=== PATIENT | female | born 1980 ===

== ENCOUNTER 2024-05-20 19:51 | Outpatient (CLI) | payer OTHER, SELFPAY | END 2024-05-20 19:52 | disposition home or self-care (01) | LOC: AMB 05-25 12:05 | PROVIDERS: Visit Provider Student in an Organized Health Care Education/Training Program | DX: R56.9 Unspecified convulsions (principal) | CPT/HCPCS: A0425; A0427 ==

== ENCOUNTER 2024-05-20 20:33 | Emergency (ER) | payer OTHER, SELFPAY ==
[2024-05-20] VITALS (27 sets, daily range): BP systolic 102–130; BP diastolic 44–85; PULSE 59–77; RESP 20; TEMP 36.9; O2SAT 94–99
--- NOTE | 2024-05-20 20:42 | CRLHL7_ITS ---
For Patients: As a result of the Century Cures Act, medical imaging exams and procedure reports are released immediately into your electronic medical record. You may view this report before your referring provider. If you have questions, please contact your health care provider. INDICATION: BURNING COUGH FOR 6 DAYS. TECHNIQUE: Chest 1 view. COMPARISON: None. FINDINGS: Unremarkable cardiomediastinal contours. No lung consolidation. No sign of pleural effusion. No pneumothorax. No acute osseous or soft tissue findings. IMPRESSION: No acute findings. Dictated by Bladimir Block MD @ 05/20/2024 9:02:42 PM (Electronically Signed)
--- NOTE | 2024-05-20 21:03 | ED.GENADULT ---
HPI - General Adult General Date Seen: 05/20/24 Chief complaint: Cough Stated complaint: possible pneumonia Time Seen by Provider: 05/20/24 20:51 Source: patient and EMS Mode of arrival: EMS Limitations: no limitations History of Present Illness HPI narrative: Patient is a 43-year-old female presenting to the emergency department for concern of pneumonia. Patient is brought in via EMS for 6 days of cough, left lower chest pain, epigastric discomfort and nausea. She states she was not feeling well and was sitting on a step when suddenly she felt herself sitting in the chair and she started to shake and then passed out and next thing she knew she was on the ground shaking. She states she remembers the shaking. Denies this ever happening before. No history of seizures. She states flu-like symptoms are not seeming to get better and she is coughing up a lot of green phlegm. She states she has been swallowing a lot of it is causing some epigastric discomfort. States that the pain is pretty minimal or at this time. Does have some mild shortness of breath. Is on hormonal control. No history of cancer or blood clots. Has not noticed any lower extremity edema, hemoptysis. No recent travel or surgeries. Denies any other medical issues. Denies any heart or lung disease. Has never smoked. Is also complaining of a sore throat. Is not aware of any sick contacts. Review of Systems Status of ROS: Reports: 10 or more systems reviewed and unremarkable except as noted in History and below [facility] Social History Smoking Status: Never smoker Do you use any of these nicotine containing products: None How often do you have a drink containing alcohol: never How often do you have six or more drinks on one occasion: Never AUDIT-C Alcohol total score: 0 Non-prescribed substance use: denies use service: No Exam Narrative: Exam Narrative: Const: Well-nourished, Well-developed, in mild distress Eyes: PERRL, no conjunctival injection, and symmetrical lids HENT: Atraumatic external nose and ears. Moist mucous membranes. Uvula midline, no tonsillar exudate or swelling Neck: Symmetric, trachea midline, No thyromegaly. CVS: RRR, No murmurs or gallops. Peripheral pulses 2+ and equal in all extremities, no lower extremity edema RESP: Unlabored respiratory effort. Clear to auscultation bilaterally. GI: Nontender/Nondistended, No rebound or guarding. MSK:Extremities w/o deformity, Normal Active ROM Skin: Warm, Dry. No rashes or lesions. Neuro: Normal Muscle tone, No focal neurological deficits. Psych: Awake, Alert, & Oriented x3. Appropriate mood and affect. Const: Vital Signs, click to edit/add: Vital Signs - 24 hr 05/20/24 20:38 05/20/24 20:56 05/20/24 21:00 Temperature 98.5 F Pulse Rate 74 75 Pulse Rate [Pulse Oximeter] 74 Respiratory Rate 20 Blood Pressure Blood Pressure [Le ft Upper Arm] 130/85 Pulse Oximetry 98 97 99 Oxygen Delivery Me thod Room Air 05/20/24 21:05 05/20/24 21:15 05/20/24 21:17 Temperature Pulse Rate 66 64 64 Pulse Rate [Pulse Oximeter] Respiratory Rate Blood Pressure 123/73 Blood Pressure [Le ft Upper Arm] Pulse Oximetry 99 96 97 Oxygen Delivery Me thod 05/20/24 21:18 05/20/24 21:30 05/20/24 21:32 Temperature Pulse Rate 64 65 61 Pulse Rate [Pulse Oximeter] Respiratory Rate Blood Pressure 102/60 Blood Pressure [Le ft Upper Arm] Pulse Oximetry 97 97 98 Oxygen Delivery Me thod 05/20/24 21:45 05/20/24 21:47 05/20/24 22:00 Temperature Pulse Rate 61 63 67 Pulse Rate [Pulse Oximeter] Respiratory Rate Blood Pressure 111/79 Blood Pressure [Le ft Upper Arm] Pulse Oximetry 97 94 98 Oxygen Delivery Me thod 05/20/24 22:02 05/20/24 22:03 05/20/24 22:15 Temperature Pulse Rate 62 64 64 Pulse Rate [Pulse Oximeter] Respiratory Rate Blood Pressure 123/60 Blood Pressure [Le ft Upper Arm] Pulse Oximetry 98 98 95 Oxygen Delivery Me thod 05/20/24 22:17 05/20/24 22:18 05/20/24 22:30 Temperature Pulse Rate 65 65 73 Pulse Rate [Pulse Oximeter] Respiratory Rate Blood Pressure 108/61 Blood Pressure [Le ft Upper Arm] Pulse Oximetry 96 96 98 Oxygen Delivery Me thod 05/20/24 22:33 05/20/24 22:45 05/20/24 22:47 Temperature Pulse Rate 68 60 64 Pulse Rate [Pulse Oximeter] Respiratory Rate Blood Pressure 110/51 L 113/76 Blood Pressure [Le ft Upper Arm] Pulse Oximetry 97 98 97 Oxygen Delivery Me thod 05/20/24 23:00 05/20/24 23:02 Temperature Pulse Rate 63 62 Pulse Rate [Pulse Oximeter] Respiratory Rate Blood Pressure 112/44 L Blood Pressure [Le ft Upper Arm] Pulse Oximetry 96 95 Oxygen Delivery Me thod Course Vital Signs Vital signs: Initial Vital Signs Temperature 98.5 F 05/20/24 20:38 Temperature Source Temporal Artery Scan 05/20/24 20:38 Pulse Rate 74 05/20/24 20:38 Respiratory Rate 20 05/20/24 20:38 Blood Pressure 130/85 05/20/24 20:38 Blood Pressure Mean 100 05/20/24 20:38 Pulse Oximetry 98 05/20/24 20:38 Oxygen Delivery Method Room Air 05/20/24 20:38 Vital Signs Temperature 98.5 F 05/20/24 20:38 Pulse Rate 74 05/20/24 20:38 Respiratory Rate 20 05/20/24 20:38 Blood Pressure 130/85 05/20/24 20:38 Pulse Oximetry 98 05/20/24 20:38 Oxygen Delivery Method Room Air 05/20/24 20:38 Temperature 98.5 F 05/20/24 20:38 Pulse Rate 77 05/20/24 23:30 Respiratory Rate 20 05/20/24 20:38 Blood Pressure 118/63 05/20/24 23:17 Pulse Oximetry 97 05/20/24 23:30 Oxygen Delivery Method Room Air 05/20/24 20:38 Medications Administered Medications: Discontinued Medications Generic Name Dose Route Start Last Admin Trade Name Freq PRN Reason Stop Dose Admin Ketorolac Tromethamine 15 mg 05/20/24 22:11 05/20/24 22:20 Ketorolac 15 Mg/Ml Inj IVP 05/20/24 22:12 15 mg ONCE ONE Administration Medical Decision Making MDM Narrative Medical decision making narrative: Patient is a 43-year-old female presenting with sounds like flu-like symptoms. She is having some chest pain. The differential diagnosis of chest pain is broad and includes common etiologies such as musculoskeletal strain, GERD, pneumonia, etc. More serious etiologies considered include PE, coronary artery disease, pneumothorax, aortic dissection, aortic aneurysm. Will do a chest x-ray to look for signs of pneumonia or pneumothorax. She cannot be perked out so D-dimer was ordered. Troponin EKG ordered to look for signs of coronary artery disease or myocarditis. COVID/flu/RSV ordered. With her epigastric discomfort are will also order lipase and liver panel. CBC, Chem 7, magnesium all ordered. Her shaking sounds more like a syncopal episode rather than a seizure as she has full memory of the shaking. She came to quickly after the shaking stopped and does not sound like she had a postictal period. Patient is also having a sore throat. Patient is not showing signs of peritonsillar abscess, Dell angina, retropharyngeal abscess,Lemierre disease or any other concerning oral pharynx or deep neck space abscesses. Imaging is not necessary Lab work returned showing no concerning abnormalities other than elevated D-dimer. Viral swabs and strep test are negative. With the elevated D-dimer a CTA will be ordered. She continues to have this epigastric discomfort and would like a CT scan of her abdomen also. This will be performed since she is already in a CT scan of her chest. I also do CT scan of her head to make sure there are no intracranial abnormalities. Her symptoms definitely sounded more like a syncopal episode but will make sure there are no intracranial issues. Patient Signed out to Dr. Bowens pending CT results. Expected dispostion is D/C. CT scan results added to my note during my next shift on 05/23/2024 Lab Data Labs: Lab Results 05/20/24 05/20/24 05/20/24 Range/Units 20:45 21:10 21:25 WBC 6.75 (4.50-11.00) K/uL RBC 4.60 (4.00-5.20) m/uL Hgb 12.9 (12.0-16.0) gm/dL Hct 40.4 (33.0-51.0) % MCV 88 (80-100) fL MCH 28 (26-34) pg MCHC 32 (32-36) gm/dL RDW Coeff of Antonio 12.7 (11.5-15.5) % Plt Count 199 (140-440) K/uL Neut % (Auto) 62.3 (42.0-72.0) % Lymph % (Auto) 28.4 (20-44) % Grayson % (Auto) 6.2 (0.0-11.0) % Eos % (Auto) 2.5 (0.0-7.0) % Baso % (Auto) 0.3 (0.0-3.0) % Neut # (Auto) 4.20 (1.7-7.0) K/uL Lymph # (Auto) 1.92 (0.90-2.90) K/uL Grayson # (Auto) 0.40 (0.00-0.90) K/UL Eos # (Auto) 0.17 (0.00-0.50) K/uL Baso # (Auto) 0.02 (0.00-0.30) K/uL Abs Immat Gran (auto) 0.02 (0.00-0.30) K/uL Imm/Tot Granulo (auto) 0.3 % D-Dimer Quant (PE/DVT) (0.00-0.50) ug/ml Sodium 137 (135-149) mmol/L Potassium 3.7 (3.6-5.1) mmol/L Chloride 106 (96-114) mmol/L Carbon Dioxide 22 (20-32) mmol/L Anion Gap 9 (7-15) mEq/L BUN 12 (5-24) mg/dL Creatinine 0.5 (0.5-1.5) mg/dL Estimated GFR 118 ml/min Glucose 102 (60-115) mg/dL Calcium 9.3 (8.4-10.6) mg/dL Magnesium 2.0 (1.5-2.6) mg/dL Total Bilirubin 0.4 (0.1-1.5) mg/dL AST 19 (12-35) U/L ALT 19 (4-35) U/L Alkaline Phosphatase 77 (40-150) U/L Troponin I < 0.01 L (0.01-0.04) ng/mL Total Protein 7.4 (6.0-8.3) g/dL Albumin 4.4 (3.3-5.0) g/dL Lipase 38 (23-300) U/L SARS-CoV-2 (PCR) Negative SARS-CoV-2 (Negative) Influenza Type A (PCR) Negative PCR FLU A (Negative) Influenza Type B (PCR) Negative PCR FLU B (Negative) RSV (PCR) Negative PCR RSV (Negative) Group A Strep DNA NOT DETECTED (Not Detectd) 05/20/24 Range/Units 22:24 WBC (4.50-11.00) K/uL RBC (4.00-5.20) m/uL Hgb (12.0-16.0) gm/dL Hct (33.0-51.0) % MCV (80-100) fL MCH (26-34) pg MCHC (32-36) gm/dL RDW Coeff of Antonio (11.5-15.5) % Plt Count (140-440) K/uL Neut % (Auto) (42.0-72.0) % Lymph % (Auto) (20-44) % Grayson % (Auto) (0.0-11.0) % Eos % (Auto) (0.0-7.0) % Baso % (Auto) (0.0-3.0) % Neut # (Auto) (1.7-7.0) K/uL Lymph # (Auto) (0.90-2.90) K/uL Grayson # (Auto) (0.00-0.90) K/UL Eos # (Auto) (0.00-0.50) K/uL Baso # (Auto) (0.00-0.30) K/uL Abs Immat Gran (auto) (0.00-0.30) K/uL Imm/Tot Granulo (auto) % D-Dimer Quant (PE/DVT) 0.63 H (0.00-0.50) ug/ml Sodium (135-149) mmol/L Potassium (3.6-5.1) mmol/L Chloride (96-114) mmol/L Carbon Dioxide (20-32) mmol/L Anion Gap (7-15) mEq/L BUN (5-24) mg/dL Creatinine (0.5-1.5) mg/dL Estimated GFR ml/min Glucose (60-115) mg/dL Calcium (8.4-10.6) mg/dL Magnesium (1.5-2.6) mg/dL Total Bilirubin (0.1-1.5) mg/dL AST (12-35) U/L ALT (4-35) U/L Alkaline Phosphatase (40-150) U/L Troponin I (0.01-0.04) ng/mL Total Protein (6.0-8.3) g/dL Albumin (3.3-5.0) g/dL Lipase (23-300) U/L SARS-CoV-2 (PCR) (Negative) Influenza Type A (PCR) (Negative) Influenza Type B (PCR) (Negative) RSV (PCR) (Negative) Group A Strep DNA (Not Detectd) Imaging Data Chest x-ray: Attestation: I have reviewed the pertinent imaging results. Radiologist's impression: No acute findings. Dictated by Bladimir Block MD @ 05/20/2024 9:02:42 PM CTA chest: Radiologist's impression: No acute findings in the chest. Specifically, no evidence of pulmonary embolism. Please note that all CT scans at this facility use dose modulation, iterative reconstruction, and/or weight-based dosing when appropriate to reduce radiation dose to as low as reasonably achievable. Dictated by Devin Flynn MD @ 05/21/2024 12:44:[address] scan - head: Radiologist's impression: No acute or suspicious intracranial abnormality. Please note that all CT scans at this facility use dose modulation, iterative reconstruction, and/or weight-based dosing when appropriate to reduce radiation dose to as low as reasonably achievable. Dictated by Devin Flynn MD @ 05/21/2024 12:36:[address] scan abdomen and pelvis: Radiologist's impression: No acute or suspicious findings in the abdomen or pelvis. Please note that all CT scans at this facility use dose modulation, iterative reconstruction, and/or weight-based dosing when appropriate to reduce radiation dose to as low as reasonably achievable. Dictated by Devin Flynn MD @ 05/21/2024 12:54:42 AM ECG Data Attestation: I personally reviewed and interpreted this ECG as follows: Prior ECG tracings: not available for review Discharge Plan Discharge Clinical Impression: Acute viral syndrome Patient Disposition: Home, Self-Care Condition: Stable Instructions: Viral Syndrome (ED) Additional Instructions: I believe your symptoms are most likely caused by a virus but as they have been persistent in your coughing up thick green phlegm I will start you on a Z-Redd. You can pick it up from instymeds. Activity Level: No Restrictions Discharge Diet: Regular Follow Up/Referrals: Provider,Not a Local [Primary Care Provider] - Stand Alone Forms: MyHealth Info Instructions
[2024-05-20 21:25] LABS: Basophils Absolute Auto 0.02 K/uL (0.00-0.30); Basophils Percent Auto 0.3 % (0.0-3.0); Eosinophils Absolute Auto 0.17 K/uL (0.00-0.50); Eosinophils Percent Auto 2.5 % (0.0-7.0); Hematocrit 40.4 % (33.0-51.0); Hemoglobin* 12.9 gm/dL (12.0-16.0); Immature Granulocytes Abs Auto 0.02 K/uL (0.00-0.30); Immature Granulocytes Pct Auto 0.3 %; Lymphocytes Absolute Auto 1.92 K/uL (0.90-2.90); Lymphocytes Percent Auto 28.4 % (20-44); Mean Corpuscular HGB Conc 32 gm/dL (32-36); Mean Corpuscular Hemoglobin 28 pg (26-34); Mean Corpuscular Volume 88 fL (80-100); Monocytes Percent Auto 6.2 % (0.0-11.0); Neutrophils Percent Auto 62.3 % (42.0-72.0); Platelet Count* 199 K/uL (140-440); RDW Coefficient of Variation % 12.7 % (11.5-15.5); White Blood Count* 6.75 K/uL (4.50-11.00)
[2024-05-20 21:28] LABS: Slide Review Reflex No
[2024-05-20 21:29] LABS: PCR FLU A Negative PCR FLU A (Negative); PCR FLU B Negative PCR FLU B (Negative); PCR RSV Negative PCR RSV (Negative); SARS PCR* Negative SARS-CoV-2 (Negative)
--- OUTSIDE RECORDS SUMMARY | 2024-05-20 21:36 | XMS_ITS | Encounter Summary ---
Author Organization [facility] Address [address] [place] [address] Care Team Providers Care Oncology Patient Navigator Name Role Phone No Ref-Primary, Physician Primary Care Provider [facility] Primary Care Provi sussy Kishore Verdugo PA-C Unavailable [phone] Ward Sosa MD Unavailable Kishore Verdugo PA-C Unavailable [phone] Ward Sosa MD Unavailable Kartik Garrison APRN INTERMEDIATE ACCOUNTANT Unavailable [phone] Virginia Patricio MD Unavailable Cele Herrmann MD Unavailable [phone] Virginia Patricio MD Unavailable Kishore Verdugo PA-C Unavailable [phone] Ward Sosa MD Unavailable Kartik Garrison APRN INTERMEDIATE ACCOUNTANT Unavailable [phone] Kishore Verdugo PA-C Primary Care Provide r Kishore Verdugo PA-C Unavailable Prakash Fernando MD Unavailable [phone] Kishore Verdugo PA-C Unavailable Ward Sosa MD Unavailable Kishore Verdugo PA-C Unavailable Albania Mesa MD Unavailable Kishore Verdugo PA-C Unavailable Tony Garcia DO Unavailable [phone] Reason for Visit * Reason Onset Date Comments Mental Health Problem 11/10/2016 Encounter Details Date Type Department Care Team ([facility] Contact Info) Description 11/10/[address] 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 B: Pt was BIB police [facility] ED. Pt called 911 to say she wasn't safe and needed to get out of her house. She feels she is being stalked and says they have stole access to her phone camera and camera at her house. She reports finding 32 different IP addresses on her home wifi. She has senther 12 year old daughter to live with family. Family reports pt has a hx of schizophrenia. Family also reports that they suspect pt and her significant other of using meth. Utox is positive for meth.Pt appears unable to take care of herself. Affect is agitated and paranoid. Pt is on a patrol officer hold. A: Refer to inpatient unit for mental health treatment. R: Admit [facility] [address]ancini. Approved by Dr. Garrison. documented in this encounter Plan of Treatment Not on file documented as of this encounter Visit Diagnoses Not on filedocumented in this encounter Additional Health Concerns Infection Onset Date Last Indicated Resolved Time Rule Out COVID-19 10/07/2019 10/07/2019 10/08/2019 7:25 PM CDT documented as of this encounter Care Teams Oncology Patient Navigator Relationship Specialty Start Date End Date No Ref-Primary, Physician PCP - General 12/22/14 03/27/[address] [place] [address] PCP - General 03/28/17 06/13/20 Kishore Verdugo PA-C [address] [place] [address] [place] [address] PCP - Assigned PCP 04/28/17 04/26/18 Ward Sosa MD [address] [place] [address] [place] [address] PCP - Assigned PCP 04/27/18 05/20/18 Kishore Verdugo PA-C [address] [place] [address] [place] [address] PCP - General Family Medicine 06/14/20 Kishore Verdugo PA-C [address] [place] [address] [address] [place], [place] [address] Assigned PCP 04/28/17 04/26/18 Ward Sosa MD [address] [place] [address] [place] [address] Assigned PCP 04/27/18 05/24/18 Kartik Garrison, COMPUTER ARCHITECT INTERMEDIATE ACCOUNTANT [address] [address] [place] [address] Assigned PCP 05/25/18 09/13/18 Virginia Patricio MD [address] [place], [place] [phone] Assigned PCP 09/14/18 10/25/18 Cele Herrmann MD [address] [place] [address] [address] [place], [place] [address] Assigned PCP 10/26/18 01/31/19 Virginia Patricio MD [address] [place] [id number] Assigned PCP 02/01/19 02/21/19 Kishore Verdugo PA-C [address] [place] [address] [place] [address] Assigned PCP 02/22/19 06/20/19 Ward Sosa MD [address] [place] [address] [place] [address] Assigned PCP 06/21/19 04/02/20 Kartik Garrison APRN INTERMEDIATE ACCOUNTANT [address] [place] [address] Assigned PCP 04/03/20 12/24/20 Kishore Verdugo PA-C [address] [place] [address] [place] [address] Assigned PCP 12/25/20 02/25/21 Prakash Fernando MD [address] [place] [address], [place] [address] Assigned PCP 02/26/21 03/25/21 Kishore Verdugo PA-C [address] [place] [address] [place] [address] Assigned PCP 03/26/21 09/01/21 Ward Sosa MD [address] [place] [address] [place] [address] Assigned PCP 09/02/21 02/09/22 Kishore Verdugo PA-C [address] [place] [address] [place] [address] Assigned PCP 02/10/22 03/02/22 Albania Mesa MD [address] [place] [address], [place] [address] Assigned PCP 03/03/22 05/11/22 Kishore Verdugo PA-C [address] [facility] [address] [place], [place] [address] Assigned PCP 05/12/22 08/07/23 [place] [address] [place] [address] Assigned PCP 08/08/23 documented as of this encounter
--- OUTSIDE RECORDS SUMMARY | 2024-05-20 21:36 | XMS_ITS | Encounter Summary ---
Author Organization [facility] Address [address] [place] [address] Care Team Providers Care Vamp Cut Out Worker Name Role Phone Kishore Verdugo PA-C Primary Care Provide r Kishore Verdugo PA-C Unavailable Tony Garcia DO Unavailable [phone] Encounter Details Date Type Department Care Team (Late st Contact Info) Description 12/25/2022 [facility] Medical Advice [address] [address] Meredith Paul, DENTAL PATIENT COORDINATOR Social History Tobacco Use Types Packs/Day Years Used Date Smoking Tobacco: Former Smokeless Tobacco: Never Comments:quit 08/05/18 Alcohol Use Standard Drinks/Week Comments Not Currently 0 (1 standard drink = 0.6 oz pur e alcohol) PHQ-2 Answer Date Recorded PHQ-2 Score 0 12/25/2022 Adolescent Education Answer Date Record ed Getting School Help Needed Not on file 12/09 Food Insecurity Answer Date Recorded Within the past 12 months, d id you worry that your food would run out before you got money to buy more? Patient refused 2022 Within the past 12 months, d id the food you bought just not last and you didn t have money to get more? Patient refused 12/25/2022 Housing Stability Answer Date Recorded Do you have housing? (Housin g is defined as stable permanent housing and does not include staying ouside in a car, in a tent, in an abandoned building, in an overnight jail, or couch-surfing.) Patient refused 12/25/2022 Are you worried about losing your housing? Patie nt refused 12/25/2022 Financial Resource Strain Answer Date R ecorded Within the past 12 months, h ave you or your family members you live with been unable to get utilities (heat, electricity) when it was really needed? Patient refused 023 Transportation Needs Answer Date Record ed Within the past 12 months, h as lack of transportation kept you from medical appointments, getting your medicines, non-medical meetings or appointments, work, or from getting things that you need? 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 Gender Identity Not on file Sexual Orientation Not on file Occupation Industry Job Start Date Job End Date Not on file Not on file Not on file Not on file documented as of this encounter Plan of Treatment Not on file documented as of this encounter Visit Diagnoses Not on filedocumented in this encounter Care Teams Vamp Cut Out Worker Relationship Specialty Start Date End Date Kishore Verdugo PA-C [address] [place] [address] [place] [address] PCP - General Family Medicine 06/14/20 Kishore Verdugo PA-C [address] [place] [address] [place] [address] Assigned PCP 05/12/22 08/07/23 Tony Garcia DO [address] [place] [address] Assigned PCP 08/08/23 documented as of this encounter
--- OUTSIDE RECORDS SUMMARY | 2024-05-20 21:36 | XMS_ITS | Clinical Summary ---
Author Organization [place] Address [address] [place] [address] Care Team Providers Care Insurance Office Manager Name Role Phone Kishore Verdugo PA-C Primary Care Provide r Tony Garcia DO Unavailable [phone] Allergies Active Allergy Reactions Criticality Noted Date Comments No Known Drug Allergy 03/20/2011 Medications fluticasone (FLONASE) 50 MCG/ACT sprayIndications :Acute non-recurrent maxillary sinusitis Carmel 1-2 sprays into both nostrils daily 9.9 g 8 Active drospirenone-eth inyl estradiol (BRIDGETTE) 3-0.02 MG tablet Take 1 tablet by mouth daily 1 Active VENTOLIN HFA 108 (90 Base) MCG/ACT inhalerIndicatio ns:Acute bronchitis with symptoms > 10 days INHALE 2 PUFFS INTO THE LUNGS EVERY 6 HOURS 18 g 2 Active cyclobenzaprine (FLEXERIL) 5 MG tabletIndication s:Low back pain without sciatica, unspecified back pain laterality, unspecified chronicity,Back strain, sequela Take 1 tablet (5 mg) by mouth 2 times daily as needed for muscle spasms 20 tablet 2 Active cyclobenzaprine (FLEXERIL) 10 MG tabletIndication s:Bilateral low back pain without sciatica, unspecified chronicity Take 1 tablet (10 mg) by mouth 3 times daily as needed for muscle spasms 30 tablet 2 Active Additional Information Patient not taking.Reported on 04/11/2023 naproxen (NAPROSYN) 500 MG tabletIndication s:Right wrist pain Take 1 tablet (500 mg) by mouth 2 times daily (with meals) 30 tablet 4 Active Active Problems Problem Noted Date Diagnosed Date Right ovarian cyst 06/02/2020 Neck pain 03/28/2017 TMJ (temporomandibular joint syndrome) 8 Right knee pain, unspecified chronicity 03/28/19 18 Resolved Problems Problem Noted Date Diagnosed Date Resolved Date Psychosis 11/11/2016 06/14/2020 Immunizations Name Administration Dates Next Due COVID-19 Monovalent 18+ (Moderna) 05/06/2020, Influenza Vaccine >6 months,quad, PF 01/11/2022, 01/08/2020,12/18/2017 Family History Relation Status Comments Brother (Age 33) murdered / blaire t Father Alive Mother Alive Sister Alive step sister Social History Tobacco Use Types Packs/Day Years Used Date Smoking Tobacco: Former Smokeless Tobacco: Never Tobacco Cessation:Counseling Given: Not Answered Comments:quit 08/05/18 Alcohol Use Standard Drinks/Week Comments Not Currently 0 (1 standard drink = 0.6 oz pur e alcohol) PHQ-2 Answer Date Recorded PHQ-2 Score 0 04/11/2023 Adolescent Education Answer Date Record ed Getting [...] in an abandoned building, in an overnight residential, or couch-surfing.) Patient refused 12/25/2022 Are you worried about losing your housing? Nelson nt refused 12/25/2022 Financial Resource Strain Answer [...] on file Legal Sex Female 4:46 AM MANAGER TRANSFER Gender Identity Not on file Sexual Orientation Not on file Occupation Industry Job Start Date Job End Date Not on file Not on file Not on file Not on file Last Filed Vital Signs Vital Sign Reading Time Taken Comments Blood Pressure 102/60 01/08/2020 2:26 PM CDT Pulse 95 01/08/2020 2:26 PM CDT Temperature 36.4 C (97.6 F) 01/08/2020 2:26 PM CDT Respiratory Rate 16 01/08/2020 2:26 PM CDT Oxygen Saturation 99% 01/08/2020 2:26 PM CDT Inhaled Oxygen Concentration - - Weight 84.4 kg (186 lb) 01/08/2020 2:26 PM CDT Height 170.2 cm (5' 7) 04/25/2019 4:41 PM MANAGER TRANSFER Body Mass Index 29.13 04/25/2019 4:41 PM MANAGER TRANSFER Plan of Treatment Health Maintenance Due Date Last Done Comments ADVANCE CARE PLANNING 1978 CT COLONOGRAPHY 1978 FIT 1978 FLEX SIG 1978 MAMMO SCREENING 1978 sDNA (Cologuard) 1978 COLONOSCOPY 1988 COLORECTAL CANCER SCREENING 1988 HEPATITIS B IMMUNIZATION (1 of 3 - 19+ 3-dose series) 1997 DTAP/TDAP/TD IMMUNIZATION (1 - Tdap) 10/01/2003 LIPID 2018 GLUCOSE 04/25/2022 04/25/2019, 03/18, 11/11/2016, Additional history exists ANNUAL REVIEW OF HM ORDERS 07/19/2022 07/19/2021 YEARLY PREVENTIVE VISIT 08/18/2023 08/17/2022, 08/17 COVID-19 Vaccine ( season) 2023 05/06/2020, 04/08/2020 INFLUENZA VACCINE (#1) 2023 2, 01/08/2020, 12/18/2017 PHQ-2 (once per calendar year) 2024 04/11/2023, 12/25/2022, 07/19/2021, Additional history exists HPV TEST 08/18/2027 08/17/2022, 10/23/2017 PAP 08/18/2027 08/17/2022, 10/23/2017 ZOSTER IMMUNIZATION (1 of 2) 2028 HEPATITIS C SCREENING Completed 11/13/2016 HIV SCREENING Completed 11/13/2016 HPV IMMUNIZATION Aged Out No longer e ligible based on patient's age to complete this topic MENINGITIS IMMUNIZATION Aged Out No l onger eligible based on patient's age to complete this topic Pneumococcal Vaccine: Pediatrics (0 to 5 Years) and At-Risk Patients (6 to 49 Years) Aged Out No longer eligible based on patient's age to complete this topic Procedures Procedure Name Priority Date/Time Associated Diagnosis Comments BASIC METABOLIC PANEL STAT 04/25/2019 5:12 PM MANAGER TRANSFER HPV HIGH RISK TYPES DNA CERVICAL Routine 10/23/2017 4:20 PM CDT Screening for cervical cancer PAP IMAGED THIN LAYER SCREEN Routine 10/23/2017 4:11 PM CDT Screening for cervical cancer HIV ANTIGEN ANTIBODY COMBO Routine 11/13/2016 10:30 AM CDT HEPATITIS C ANTIBODY Routine 11/13/2016 10:30 AM CDT from Last 3 Months or Most Recently Relevant to Health Maintenance Results * (ABNORMAL) Basic metabolic panel (04/25/2019 5:12 PM MANAGER TRANSFER) Sodium 140 133 - 144 mmol/L 04/25/2019 5:[address] [facility] Potassium 3.7 3.4 - 5.3 mmol/L 04/25/2019 5:[address] [facility] Chloride 110(H) 94 - 109 mmol/L 04/25/2019 5:[address] [facility] Carbon Dioxide 24 20 - 32 mmol/L 04/25/2019 5:34 PM [facility] Anion Gap 6 3 - 14 mmol/L 04/25/2019 5:34 PM [facility] Glucose 92 70 - 99 mg/dL 04/25/2019 5:34 PM [facility] Urea Nitrogen 14 7 - 30 mg/dL 04/25/2019 5:34 PM [facility] Creatinine 0.58 0.52 - 1.04 mg/dL 04/25/2019 5:34 PM [facility] GFR Estimate >90 >60 mL/min/{1. 73_m2} 04/25/2019 5:34 PM [facility] Comment: Non GFR Calc Starting 03/04/2018, serum creatinine based estimated GFR (eGFR) will be calculated using the Chronic Kidney Disease Epidemiology Collaboration (CKD-EPI) equation. GFR Estimate If Black >90 >60 mL/min/{1. 73_m2} 04/25/2019 5:34 PM [facility] Comment: GFR Calc Starting 03/04/2018, serum creatinine based estimated GFR (eGFR) will be calculated using the Chronic Kidney Disease Epidemiology Collaboration (CKD-EPI) equation. Calcium 9.0 8.5 - 10.1 mg/dL 04/25/2019 5:34 PM [facility] Blood specimen (specimen) 04/25/2019 5:12 PM MANAGER TRANSFER 04/25/2019 5:16 PM MANAGER TRANSFER us Yamileth West NP LAB - BLOOD ORDERABLES Final Result Performing Organization Address City/State/[facility] Co de Phone Number [facility] [address] [place], [place] [address] [phone] * HPV High Risk Types DNA Cervical (10/23/2017 4:20 PM CDT) HPV Source SurePath 10/23/2017 4:12 PM CDT [facility] HPV 16 DNA Negative NEG^Nega tive 10/30/2017 12:10 PM CDT [facility] HPV 18 DNA Negative NEG^Nega tive 10/30/2017 12:10 PM CDT [facility] Other HR HPV Negative NEG^Nega tive 10/30/2017 12:10 PM CDT [facility] Final Diagnosis This patient's sample is negative for HPV DNA. 10/30/2017 12:10 PM CDT [facility] Comment: This test was developed and its performance characteristics determined by the [facility]. It has not been cleared or approved by the FDA. The laboratory is regulated under CLIA as qualified to perform high-complexity testing. This test is used for clinical purposes. It should not be regarded as investigational or for research. (Note) METHODOLOGY: The Edu dante 4800 system uses automated extraction, simultaneous amplification of HPV (L1 region) and beta-globin, followed by real time detection of fluorescent labeled HPV and beta globin using specific oligonucleotide probes . The test specifically identifies types HPV 16 DNA and HPV 18 DNA while concurrently detecting the rest of the high risk types (31, 33, 35, 39, 45, 51, 52, 56, 58, 59, 66 or 68). COMMENTS: This test is not intended for use as a screening device for women under age 30 with normal cervical cytology. Results should be correlated with cytologic and histologic findings. Close clinical followup is recommended. Specimen Description Cervical Cells 10/29/2017 7:25 AM CDT [facility] Comment:[id number] Cervical Cells 10/23/2017 4: 20 PM CDT 10/23/2017 4:39 PM CDT us Francisco Chang MD LAB - BLOOD ORDERABLES Fi nal Result [facility] [address] [place] [address] [address] * Pap imaged thin layer screen with HPV - recommended age 30 - 65 years (select HPV order below) (10/23/2017 4:11 PM CDT) PAP NIL ANNA Wall Report Patient Name: ANGEL LEE MR#: [id number] Specimen #: [id number] Collected: 10/23/2017 Received: 10/25/2017 Reported: 10/28/2017 14:04 Ordering Phy(s): FRANCISCO CHANG For improved result formatting, select 'View Enhanced Report Format' under Linked Documents section. SPECIMEN/STAIN PROCESS: Pap imaged thin layer prep screening (Surepath, FocalPoint with guided screening) Pap-Cyto x 1, HPV ordered x 1 SOURCE: Cervical, endocervical Pap imaged thin layer prep screening (Surepath, FocalPoint with guided screening) SPECIMEN ADEQUACY: Satisfactory for evaluation. -Transformation zone component absent. CYTOLOGIC INTERPRETATION: Negative for intraepithelial lesion or malignancy Electronically signed out by: VIANEY Stone (ASCP) Processed and screened at [facility] CLINICAL HISTORY: Papanicolaou Test Limitations: Cervical cytology is a screening test with limited sensitivity; regular screening is critical for cancer prevention; Pap tests are primarily effective for the diagnosis/preventi on of squamous cell carcinoma, not adenocarcinomas or other cancers. TESTING LAB LOCATION: [address] [address] COLLECTION SITE: Client: [facility] Location: [facility] (S) [facility] Cytologic material (specimen) 10/23/2017 4:11 PM CDT 10/25/2017 9:10 AM CDT us Francisco Chang MD LAB - OPTIME CLINICAL SPE CIMEN Final Result [facility] * HIV Antigen Antibody Combo (11/13/2016 10:30 AM CDT) HIV Antigen Antibody Combo Nonreactive NR^Nonrea ctive 11/13/2016 2:53 PM CDT [facility] Comment:HIV-1 p24 Ag & HIV-1 /HIV-2 Ab Not Detected Blood specimen (specimen) 11/13/2016 10:30 AM CDT 11/13/2016 10:31 AM CDT Suraj Mancini MD LAB - BLOOD ORDERABLES Nabila l Result [facility] [address] [place] [address] * Hepatitis C antibody (11/13/2016 10:30 AM CDT) Hepatitis C Antibody Nonreactive NR^Nonre active 11/13/2016 2:53 PM CDT [facility] Comment: Assay performance characteristics have not been established for newborns, infants, and children Blood specimen (specimen) 11/13/2016 10:30 AM CDT 11/13/2016 10:31 AM CDT Suraj Mancini MD LAB - BLOOD ORDERABLES Nabila l Result Performing Organization Address [facility] Co de Phone Number [facility] [address] [place] [address] from Last 3 Months or Most Recently Relevant to Health Maintenance Insurance [facility] Advance Directives For more information, please contact: [phone] * Full Code (Latest Code Status on File) Date Activated Date Inactivated Comments 11/11/2016 12:14 AM 11/13/2016 5:09 PM Care Teams Insurance Office Manager Relationship Specialty Start Date End Date Kishore Verdugo PA-C [address] [place] [address] ARTHUR DORANTES [address] PCP - General Family Medicine 06/14/20 [place] [address] [place] [address] Assigned PCP 08/08/23
--- OUTSIDE RECORDS SUMMARY | 2024-05-20 21:36 | XMS_ITS | Encounter Summary ---
Author Organization [place] Address [address] [place] [address] Care Team Providers Care Courtesy Clerk Name Role Phone [facility] Primary Care Provi sussy Kartik Garrison APRN MANAGER SPANISH Unavailable [phone] Kishore Verdugo PA-C Primary Care Provide r Kishore Verdugo PA-C Unavailable Prakash Fernando MD Unavailable Kishore Verdugo PA-C Unavailable Ward Sosa MD Unavailable Kishore Verdugo PA-C Unavailable [place]ia Mesa MD Unavailable Kishore Verdugo PA-C Unavailable Tony Garcia DO Unavailable Reason for Visit * Reason Comments Medication Refill Encounter Details Date Type Department Care Team (Late st Contact Info) Description 05/25/2020 Refill [facility] [address] [place] [phone] Virginia Patricio MD [address] [phone] Medication Refill Social History Tobacco Use Types Packs/Day Years Used Date Smoking Tobacco: Former Smokeless Tobacco: Never Comments:quit 08/05/18 Alcohol Use Standard Drinks/Week Comments Not Currently 0 (1 standard drink = 0.6 oz pur e alcohol) PHQ-2 Answer Date Recorded PHQ-2 Score 0 03/26/2018 Comments No Sex and Gender Information Value Date Recorded Sex Assigned at Not on file Legal Sex Female 4:46 AM CLINICAL DOCUMENTATION IMPROVEMENT SPECIALIST Gender Identity Not on file Sexual Orientation Not on file Occupation Industry Job Start Date Job End Date Not on file Not on file Not on file Not on file documented as of this encounter Miscellaneous Notes * Telephone Encounter - Virginia Patricio MD - 06/01/2020 1:36 PM CDT Medication declined. Virginia Patricio MD * Telephone Encounter - Parris Whipple RN - 06/01/2020 8:56 AM CDT 3rd phone attempt. Non detailed message left for pt to return call to clinic and ask to speak with a triage nurse. My chart message has not been read. Routing to Dr. Patricio to decide on prescription renewal. Parris Kathleen RN EP Triage * Telephone Encounter - Fatou Gallo RN - 05/30/2020 9:53 AM CDT 2nd attempt Left message on answering machine for patient to call back. 3 rd attempt Sent [employer] message 05/29- not read yet Vicki Campuzano RN BSN [facility] [phone] * Telephone Encounter - Fatou Gallo RN - 05/26/2020 1:13 PM CLINICAL DOCUMENTATION IMPROVEMENT SPECIALIST Left message on answering machine for patient to call back. Vicki CampuzanoADMINISTRATIVE OFFICE MANAGER [facility] [phone] ICAL DOCUMENTATION IMPROVEMENT SPECIALIST * Telephone Encounter - Virginia Patricio MD - 05/26/2020 10:43 AM CLINICAL DOCUMENTATION IMPROVEMENT SPECIALIST I haven't seen Sabrina since 08/2018. She has had visits with a number of providers here. Who does she consider her PCP? Virginia Patricio MD ICAL DOCUMENTATION IMPROVEMENT SPECIALIST * Telephone Encounter - Fatou Gallo RN - 05/26/2020 8:37 AM CLINICAL DOCUMENTATION IMPROVEMENT SPECIALIST Patient due for labs- Visit is updated- do you just want lab orders for this? Requested Prescriptions Pending Prescriptions Disp Refills ??? furosemide (LASIX) 20 MG tablet [Pharmacy Med Name: FUROSEMIDE 20MG TABLETS] 30 tablet 1 Sig: TAKE 1/2 TO 1 TABLET(10 TO 20 MG) BY MOUTH DAILY NEEDED FOR LEG SWELLING Diuretics (Including Combos) Protocol Failed - 05/25/2020 3:34 AM Failed - Normal serum creatinine on file in past 12 months Recent Labs Lab Test 04/25/19 1712 CR 0.58 Failed - Normal serum potassium on file in past 12 months Recent Labs Lab Test 04/25/19 1712 POTASSIUM 3.7 Failed - Normal serum sodium on file in past 12 months Recent Labs Lab Test 04/25/19 1712 NA 140 Passed - Blood pressure under 140/90 in past 12 months BP Readings from Last 3 Encounters: 01/08/20 102/60 04/25/19 123/48 02/20/19 102/60 Passed - Recent (12 mo) or future (30 days) visit within the authorizing provider's specialty Patient has had an office visit with the authorizing provider or a provider within the authorizing providers department within the previous 12 mos or has a future within next 30 days. See Patient Info tab in inbasket, or Choose Columns in Meds & Orders section of the refill encounter. Passed - Medication is active on med list Passed - Patient is age 18 or older Passed - No active pregancy on record Passed - No positive test in past 12 months ICAL DOCUMENTATION IMPROVEMENT SPECIALIST documented in this encounter Plan of Treatment Not on file documented as of this encounter Visit Diagnoses Diagnosis Leg edema Edema documented in this encounter Care Teams Courtesy Clerk Relationship Specialty Start Date End Date [facility], [address] [place] [address] PCP - General 03/28/17 06/13/20 Kishore Verdugo PA-C [address] [place] [address] ARTHUR DORANTES [address] PCP - General Family Medicine 06/14/20 Kartik Garrison APRN MANAGER SPANISH [address] [place] [address] Assigned PCP 04/03/20 12/24/20 Kishore Verdugo PA-C [address] [place] [address] ARTHUR DORANTES [address] Assigned PCP 12/25/20 02/25/21 Prakash Fernando MD [address] [place] [address] Assigned PCP 02/26/21 03/25/21 Kishore Verdugo PA-C [address] [place] [address] ARTHUR DORANTES [address] Assigned PCP 03/26/21 09/01/21 Ward Sosa MD [address] [place] [address] ARTHUR ODRANTES [address] Assigned PCP 09/02/21 02/09/22 Kishore Verdugo PA-C [address] [place] [address] ARTH[place] DORANTES [address] Assigned PCP 02/10/22 03/02/22 Albania Mesa MD [address] [place] [address] Assigned PCP 03/03/22 05/11/22 Kishore Verdugo PA-C [address] [place] [address] ARTHUR DORANTES [address] Assigned PCP 05/12/22 08/07/23 Tony Garcia DO [address] [place] [address] Assigned PCP 08/08/23 documented as of this encounter
--- OUTSIDE RECORDS SUMMARY | 2024-05-20 21:36 | XMS_ITS | Encounter Summary ---
Author Organization [place] Address [address] [place] [address] Care Team Providers Care Fig Washer Name Role Phone Kishore Verdugo PA-C Primary Care Provide r Ward Sosa MD Unavailable Kishore Verdugo PA-C Unavailable Albania Mesa MD Unavailable Kishore Verdugo PA-C Unavailable Tony Garcia DO Unavailable Reason for Visit * Reason Comments Medication Refill Encounter Details Date Type Department Care Team (Late st Contact Info) Description [facility] [place] [phone] Ward Sosa MD [address] [place] [address] ARTHUR DORANTES [address] Medication Refill Social History Tobacco Use Types Packs/Day Years Used Date Smoking Tobacco: Former Smokeless Tobacco: Never Comments:quit 08/05/18 Alcohol Use Standard Drinks/Week Comments Not Currently 0 (1 standard drink = 0.6 oz pur e alcohol) PHQ-2 Answer Date Recorded PHQ-2 Score 0 07/19/2021 Comments No Sex and Gender Information Value Date Recorded Sex Assigned at Not on file Legal Sex Female 4:46 AM BUSINESS OBJECTS DEVELOPER Gender Identity Not on file Sexual Orientation Not on file Occupation Industry Job Start Date Job End Date Not on file Not on file Not on file Not on file documented as of this encounter Plan of Treatment Not on file documented as of this encounter Visit Diagnoses Diagnosis Low back pain without sciatica, unspecified back pain laterality, unspecified chronicity Back strain, sequela documented in this encounter Care Teams Fig Washer Relationship Specialty Start Date End Date Kishore Verdugo PA-C [address] [place] [address] ARTHUR DORANTES [address] PCP - General Family Medicine 06/14/20 Ward Sosa MD [address] [place] [address] AR[place] DORANTES [address] Assigned PCP 09/02/21 02/09/22 Kishore Verdugo PA-C [address] [place] [address] ARTH[place] DORANTES [address] Assigned PCP 02/10/22 03/02/22 Albania Mesa MD [address] [place] [address] Assigned PCP 03/03/22 05/11/22 Kishore Verdugo PA-C [address] [place] [address] ARTH[place] DORANTES [address] Assigned PCP 05/12/22 08/07/23 [place] [address] [place] [address] Assigned PCP 08/08/23 documented as of this encounter
--- OUTSIDE RECORDS SUMMARY | 2024-05-20 21:36 | XMS_ITS | Encounter Summary ---
Author Organization [facility] Address [address] [place] [address] Care Team Providers Care Marketing Reporting Analyst Name Role Phone Jalen Marx MD Primary Care Provider + [phone] No Ref-Primary, Physician Primary Care Provider [facility] Care Provi sussy Kishore Verdugo PA-C Unavailable [phone] Ward Sosa MD Unavailable Kishore Verdugo PA-C Unavailable [phone] Ward Sosa MD Unavailable Kartik Garrison APRN PENSION FUND MANAGER Unavailable + [phone] Virginia Patricio MD Unavailable Cele Herrmann MD Unavailable [phone] Virginia Patricio MD Unavailable Kishore Verdugo PA-C Unavailable Ward Sosa MD Unavailable Kartik Garrison APRN PENSION FUND MANAGER Unavailable + [phone] Kishore Verdugo PA-C Primary Care Provide r Kishore Verdugo PA-C Unavailable Prakash Fernando MD Unavailable [phone] Kishore Verdugo PA-C Unavailable Ward Sosa MD Unavailable Kishore Verdugo PA-C Unavailable Albania Mesa MD Unavailable Kishore Verdugo PA-C Unavailable Tony Garcia DO Unavailable Encounter Details Date Type Department Care Team (Late st Contact Info) Description 04/17/2007 Clinic Report (Manager Ob) [facility] [address] [place] [address] [address] [place] [address] Dami Valadez DO XXX XXX [address] [place] [address] Social History Tobacco Use Types Packs/Day Years Used Date Smoking Tobacco: Former Comments:quit in ~ 2003 Alcohol Use Standard Drinks/Week Comments Not Asked 0 (1 standard drink = 0.6 oz pur e alcohol) Comments No Sex and Gender Information Value Date Recorded Sex Assigned at Not on file Legal Sex Female 4:46 AM HELICOPTER TECHNICIAN Gender Identity Not on file Sexual Orientation Not on file documented as of this encounter Progress Notes * Dami Valadez DO - 02/09/2012 2:44 PM CST CC/HPI: Started 1 wk ago. Cough is somewhat productive,moapa green phlegm can't sleep for coughing, stomach upset, headaches, L ear pops, chest and sinus congestion.Getting worse. None ROS: None Vital Signs: data collected on 04/17/2007 03:09:19 PM by Marcela Pham weight is 152 pounds clothed sitting heart rate is 60 bpm regular blood pressure at Left Arm while Sitting is 100/60 mmHg PE: None Dx: 466.0 Bronchitis, acute Rx: Azithromycin 500 mg Tab, 1 Tablet, PO, QD, 4 days, for a total of 4. Mucinex 600 mg Tab, 2 Tablet Sustained Release, PO, BID, OTC /Take with a full glass of water.. Plan: None Patient Instructions: None COPTER TECHNICIAN documented in this encounter Plan of Treatment Not on file documented as of this encounter Visit Diagnoses Not on filedocumented in this encounter Additional Health Concerns Infection Onset Date Last Indicated Resolved Time Rule Out COVID-19 10/07/2019 10/07/2019 10/08/2019 7:25 PM CDT documented as of this encounter Care Teams Marketing Reporting Analyst Relationship Specialty Start Date End Date Jalen Marx MD [address] [address] PCP - General Internal Medicine 07/30/11 12/21/14 No Ref-Primary, Physician PCP - General 12/22/14 03[facility]27[facility] [address] [place] [address] PCP - General 03/28/17 06/13/20 Kishore Verdugo PA-C [address] [place] [address] [place] [address] PCP - Assigned PCP 04/28/17 04/26/18 Ward Sosa MD [address] [place] [address] [place] [address] PCP - Assigned PCP 04/27/18 05/20/18 Kishore Verdugo PA-C [address] [place] [address] [place] [address] PCP - General Family Medicine 06/14/20 Kishore Verdugo PA-C [address] [place] [address] [place] [address] Assigned PCP 04/28/17 04/26/18 Ward Sosa MD [address] [place] [address] [place] [address] Assigned PCP 04/27/18 05/24/18 Kartik Garrison APRN PENSION FUND MANAGER [address] [place] [address] Assigned PCP 05/25/18 09/13/18 [place] [address] [place] [phone] Assigned PCP 09/14/18 10/25/18 Cele Herrmann MD [address] [place] [address] [place] [address] Assigned PCP 10/26/18 01/31/19 Virginia Patricio MD [address] [address] Assigned PCP 02/01/19 02/21/19 Kishore Verdugo PA-C [address] [place] [address] [place] [address] Assigned PCP 02/22/19 06/20/19 Ward Sosa MD [address] [place] [address] [place] [address] Assigned PCP 06/21/19 04/02/20 Kartik Garrison APRN PENSION FUND MANAGER [address] [place] [address] Assigned PCP 04/03/20 12/24/20 Kishore Verdugo PA-C [address] [place] [address] [place] [address] Assigned PCP 12/25/20 02/25/21 Prakash Fernando MD [address] [place] [address] Assigned PCP 02/26/21 03/25/21 Kishore Verdugo PA-C [address] [place] [address] [place] [address] Assigned PCP 03/26/21 09/01/21 Ward Sosa MD [address] [place] [address] [place] [address] Assigned PCP 09/02/21 02/09/22 Kishore Verdugo PA-C [address] [place] [address] [place] [address] Assigned PCP 02/10/22 03/02/22 Albania Mesa MD [address] [place] [address] [place] [address] Assigned PCP 03/03/22 05/11/22 Kishore Verdugo PA-C 0 [facility] [place] [address] Assigned PCP 05/12/22 08/07/23 Tony Garcia DO [address] [place] [address] Assigned PCP 08/08/23 documented as of this encounter
--- OUTSIDE RECORDS SUMMARY | 2024-05-20 21:36 | XMS_ITS | Encounter Summary ---
Author Organization [facility] Address [address] [place] [address] Care Team Providers Care City Detective Name Role Phone [facility] Primary Care Provi sussy Ward Sosa MD Unavailable Kartik Garrison APRN CONSERVATION SCIENCE TEACHER Unavailable [phone] Kishore Verdugo PA-C Primary Care Provide r Kishore Verdugo PA-C Unavailable [phone] Prakash Fernando MD Unavailable Kishore Verdugo PA-C Unavailable [phone] Ward Sosa MD Unavailable Kishore Verdugo PA-C Unavailable Albania Mesa MD Unavailable Kishore Verdugo PA-C Unavailable [phone] Tony Garcia DO Unavailable Reason for Visit * Reason Comments Medication Refill Encounter Details Date Type Department Care Team (Late st Contact Info) Description 10/15/[address] 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 Unable to assess 10/07/2019 7:25 AM CDT documented as of this encounter Plan of Treatment Not on file documented as of this encounter Visit Diagnoses Diagnosis Leg edema Edema documented in this encounter Care Teams City Detective Relationship Specialty Start Date End Date [address] [place] [address] PCP - General 03/28/17 06/13/20 Kishore Verdugo PA-C [address] [place] [address] [place] [address] PCP - General Family Medicine 06/14/20 Ward Sosa MD [address] [place] [address] [place] [address] Assigned PCP 06/21/19 04/02/20 Kartik Garrison APRN CONSERVATION SCIENCE TEACHER [address] [place] [address] Assigned PCP 04/03/20 12/24/20 Kishore Verdugo PA-C [address] [place] [address] [place] [address] Assigned PCP 12/25/20 02/25/21 Prakash Fernando MD [address] [place] [address] Assigned PCP 02/26/21 03/25/21 Kishore Verdugo PA-C [address] [place] [address] [place] [address] Assigned PCP 03/26/21 09/01/21 Ward Sosa MD [address] [place] [address] [place] [address] Assigned PCP 09/02/21 02/09/22 Kishore Verdugo PA-C [address] [place] [address] [place] [address] Assigned PCP 02/10/22 03/02/22 Albania Mesa MD [address] [place] [address] Assigned PCP 03/03/22 05/11/22 Kishore Verdugo PA-C [address] [place] [address] [place] [address] Assigned PCP 05/12/22 08/07/23 Tony Garcia DO [address] [place] [address] Assigned PCP 08/08/23 documented as of this encounter
--- OUTSIDE RECORDS SUMMARY | 2024-05-20 21:36 | XMS_ITS | Encounter Summary ---
Author Organization [facility] Address [address] [place] [address] Care Team Providers Care Millwright Instructor Name Role Phone Kishore Verdugo PA-C Primary Care Provide r Kishore Verdugo PA-C Unavailable Tony Garcia DO Unavailable [phone] Reason for Visit * Reason Comments Medication Refill Encounter Details Date Type Department Care Team (Late st Contact Info) Description 04/10/[address] [address] Kishore Verdugo PA-C [address] [place] [address] [place] [address] Medication Refill Social History Tobacco Use Types [...] Answer Date Recorded Do you have housing? 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 Gender Identity Not on file Sexual Orientation Not on file Occupation Industry Job Start Date Job End Date Not on file Not on file Not on file Not on file documented as of this encounter Plan of Treatment Not on file documented as of this encounter Visit Diagnoses Diagnosis Low back pain without sciatica, unspecified back pain laterality, unspecified chronicity documented in this encounter Care Teams Millwright Instructor Relationship Specialty Start Date End Date Kishore Verdugo PA-C [address] [place] [address] [place] [address] PCP - General Family Medicine 06/14/20 Kishore Verdugo PA-C [address] [place] [address] [place] [address] Assigned PCP 05/12/22 08/07/23 Tony Garcia DO [address] [place] [address] Assigned PCP 08/08/23 documented as of this encounter
--- OUTSIDE RECORDS SUMMARY | 2024-05-20 21:36 | XMS_ITS | Encounter Summary ---
Author Organization [facility] Address [address] [place] [address] Care Team Providers Care Human Resources Talent Manager Name Role Phone [facility] Primary Care Provi sussy Kartik Garrison APRN PRINCIPAL INVESTIGATOR Unavailable [phone] Kishore Verdugo PA-C Primary Care Provide r Kishore Verdugo PA-C Unavailable [phone] Prakash Fernando MD Unavailable Kishore Verdugo PA-C Unavailable Ward Sosa MD Unavailable Kishore Verdugo PA-C Unavailable [phone] Albania Mesa MD Unavailable Kishore Verdugo PA-C Unavailable [phone] Tony Garcia DO Unavailable [phone] Encounter Details Date Type Department Care Team (Late st Contact Info) Description 05/29/2020 [facility] Medical Advice [facility] [address] [place] [address] [address] Fatou Gallo, RN Social History Tobacco Use Types Packs/Day Years Used Date Smoking Tobacco: Former Smokeless Tobacco: Never Comments:quit 08/05/18 Alcohol Use Standard Drinks/Week Comments Not Currently 0 (1 standard drink = 0.6 oz pur e alcohol) PHQ-2 Answer Date Recorded PHQ-2 Score 0 03/26/2018 Comments No Sex and Gender Information Value Date Recorded Sex Assigned at Not on file 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 Gender Identity Not on file Sexual Orientation Not on file Occupation Industry Job Start Date Job End Date Not on file Not on file Not on file Not on file documented as of this encounter Plan of Treatment Not on file documented as of this encounter Visit Diagnoses Not on filedocumented in this encounter Care Teams Human Resources Talent Manager Relationship Specialty Start Date End Date [facility] [place] [place] [address] PCP - General 03/28/17 06/13/20 Kishore Verdugo PA-C [address] [place] [address] [place] [address] PCP - General Family Medicine 06/14/20 Kartik Garrison APRN PRINCIPAL INVESTIGATOR [address] [facility] [place] [address] Assigned PCP 04/03/20 12/24/20 Kishore Verdugo PA-C [address] [place] [address] [place] [address] Assigned PCP 12/25/20 02/25/21 Prakash Fernando MD [address] [place] [address] Assigned PCP 02/26/21 03/25/21 Kishore Verdugo PA-C [address] [place] [address] [place] [address] Assigned PCP 03/26/21 09/01/21 Ward Sosa MD [address] [place] [address] [address] [place], [place] [address] Assigned PCP 09/02/21 02/09/22 Kishore Verdugo PA-C [address] [place] [address] [place] [address] Assigned PCP 02/10/22 03/02/22 Albania Mesa MD [address] [place] [address] Assigned PCP 03/03/22 05/11/22 Kishore Verdugo PA-C [address] [place] [address] [place] [address] Assigned PCP 05/12/22 08/07/23 [place] [address] [place] [address] Assigned PCP 08/08/23 documented as of this encounter
--- OUTSIDE RECORDS SUMMARY | 2024-05-20 21:36 | XMS_ITS | Clinical Summary ---
Author Organization [facility] Address [address] [place] [address] Care Team Providers Care Ict Account Manager Name Role Phone [facility] [place]ma solorio Care Provider Unavailable Allergies No known active allergies Medications IBUPROFEN 200 MG TAB take 1-4 tablet (200-800 mg) by oral route every 6 hours as needed with food Active ondansetron (ZOFRAN ODT) 4 mg disintegrating tabletIndications:N ausea Place 1 Tablet (4 mg) on the tongue every 8 hours if needed for Nausea/Vomit ing. 10 Tablet 1 Active cyclobenzaprine (FLEXERIL) 5 mg tablet Take 5 mg by mouth 2 times daily if needed. 2 Active cyclobenzaprine (FLEXERIL) 10 mg tablet 2 Active naproxen (NAPROSYN) 500 mg tablet 2 Active albuterol HFA (Ventolin HFA) 90 mcg/actuation inhaler INHALE 2 PUFFS INTO THE LUNGS EVERY 6 HOURS 2 Active oxyCODONE-acetamino phen (PERCOCET) 5-325 mg per tabletIndications:F lank pain,Ruptured ovarian cyst Take 1-2 Tablets by mouth every 4 hours if needed for Pain. 12 Tablet 4 Active ondansetron (ZOFRAN) 4 mg tabletIndications:F lank pain,Ruptured ovarian cyst Take 1-2 Tablets (4-8 mg) by mouth every 8 hours if needed for Nausea/Vomit ing. 10 Tablet 4 Active drospirenone-ethiny l estradioL (BRIDGETTE) 3-0.02 mg tabletIndications:E ncounter for surveillance of contraceptive pills TAKE 1 TABLET BY MOUTH EVERY DAY 84 Tablet 4 Active Active Problems Problem Noted Date Diagnosed Date Pap smear for cervical cancer screening 08/17/19 Overview (09/24/2022): 08/2022 NIL/HPV negative. Plan: Pap/HPV due 08/2027. Anemia 09/28/2020 08/17/2022 Pelvic pain in female 06/02/2020 Right ovarian cyst 06/02/2020 Abdominal pain, right lower quadrant 09/21/2007 Resolved Problems Problem Noted Date Diagnosed Date Resolved Date Dehydration 09/21/2007 06/02/2020 Encounters Date Type Department Care Team Description 04/09/2024 10:15 AM DIGITAL ASSOCI[place] [address] Carlota Mcgregor NP Work Note 04/09/2024 Travel from Last 3 Months Immunizations Name Administration Dates Next Due COVID-19 vaccine (Moderna 10 0mcg/0.5mL) PF, MDV 05/06/2020,04/08/2020 Influenza, IIV4 01/11/2022,01/08/2020,12/18/2017 Social History Tobacco Use Types Packs/Day Years Used Date Smoking Tobacco: Never Smokeless Tobacco: Never Alcohol Use Standard Drinks/Week Comments Not Currently 0 (1 standard drink = 0.6 oz pur e alcohol) PHQ-2 Answer Date Recorded PHQ-2 TOTAL SCORE 0 08/17/2022 Interpersonal Safety Answer Date Record ed Are you being hit, kicked, p ushed or yelled at (see row info)? No 08/13/2023 Interpersonal Safety Abuse 12 - 18 Not on file 08/13/2023 Interpersonal Safety Ambulatory Vulnerability No t on file 08/13/2023 Comments No Sex and Gender Information Value Date Recorded Sex Assigned at Not on file Legal Sex Female 7:30 AM DIGITAL ASSOCIATE Gender Identity Not on file Sexual Orientation Not on file Obstetrics History Para Term AB IAB SAB Ectopic Multiple Livin g Live Births 5 3 3 0 2 1 0 1 0 3 3 Date Outcome GA Total Labor Labor/2nd/3rd Weight Sex Type Anes PTL Jeanette A1 A5 Name Clin IAB ELECTIV E AB Ectopic ECTOPIC Term Vag-Spo nt Living Term Vag-Spo nt Living Term Vag-Spo nt Living Last Filed Vital Signs Vital Sign Reading Time Taken Comments Blood Pressure 120/67 08/13/2023 7:14 PM CDT Pulse 52 08/13/2023 7:14 PM CDT Temperature 36.9 C (98.4 F) 08/13/2023 3:44 PM CDT Respiratory Rate 18 08/13/2023 5:30 PM CDT Oxygen Saturation 97% 08/13/2023 7:14 PM CDT Inhaled Oxygen Concentration - - Weight 86.2 kg (190 lb) 08/13/2023 3:44 PM CDT Height 167.6 cm (5' 6) 08/13/2023 3:44 PM CDT Body Mass Index 30.67 08/13/2023 3:44 PM CDT Plan of Treatment Health Maintenance Due Date Last Done Comments Tdap 1989 HIV for age 15-65 1993 BMI (ht and wt on same day) for age 18+ 1996 Hepatitis C screening for ag e 18-79 1996 Tetanus booster 1998 Depression screening for age 12+ 08/18/2023 08/17/2022 Colonoscopy through age 75 10/01/2023 Lipids for age 45-75 10/01/2023 Mammogram for age 45-75 10/01/2023 COVID-19 vaccine series ( season) 2023 05/06/2020, 04/08/2020 Influenza for age 9-49 11/17/2023 2, 01/08/2020, 12/18/2017 Pap test for age 21-65 08/18/2027 3, 08/17/2022 Pneumococcal series for age 6-49 Aged Out No longer eligible b ased on patient's age to complete this topic Procedures Procedure Name Priority Date/Time Associated Diagnosis Comments HPV HIGH RISK Routine 08/17/2022 1:40 PM CDT Encounter for screening for cervical cancer from Last 3 Months or Most Recently Relevant to Health Maintenance Results * HPV HIGH RISK (08/17/2022 1:40 PM CDT) TYPE 16 Negative Negative 08/21/2022 5:14 PM CDT [facility]AL [facility] TYPE 18 Negative Negative 08/21/2022 5:14 PM CDT [facility] OTHER HIGH RISK TYPES Negative Negative 08/21/2022 5:14 PM CDT [facility] TRA LABOR[facility] Other (Cervical) Non-Blood / Unknown 08/17/2022 1:40 PM CDT 08/20/2022 11:30 AM CDT Narrative [facility] - 08/21/2022 5:14 PM CDT HPV types 16, 18, 31, 33, 35, 39, 45, 51, 52, 56, 58, 59, 66 and 68 DNA were undetectable or below the pre-set threshold. Methodology: [employer] 4800 HPV Test Cheryl Robison NP MICROBIOLOGY Final Result [facility] [address] [place] [address], [place] from Last 3 Months or Most Recently Relevant to Health Maintenance Insurance [facility] Advance Directives * Full Code (Latest Code Status on File) Date Activated Date Inactivated Comments 09/20/2007 1:33 PM 09/23/2007 12:19 AM Care Teams Ict Account Manager Relationship Specialty Start Date End Date [facility] [place] PCP - General 07/26/21
[2024-05-20 21:41] LABS: Albumin* 4.4 g/dL (3.3-5.0); Chloride* 106 mmol/L (96-114); Potassium* 3.7 mmol/L (3.6-5.1); Sodium* 137 mmol/L (135-149)
[2024-05-20 21:43] LABS: Blood Urea Nitrogen* 12 mg/dL (5-24); Creatinine* 0.5 mg/dL (0.5-1.5); Estimated Glomerular Filt Rate 118 ml/min
[2024-05-20 21:44] LABS: Alanine Aminotransferase* 19 U/L (4-35); Alkaline Phosphatase* 77 U/L (40-150); Anion Gap 9 mEq/L (7-15); Aspartate Amino Transferase* 19 U/L (12-35); Bilirubin Total* 0.4 mg/dL (0.1-1.5); Calcium* 9.3 mg/dL (8.4-10.6); Carbon Dioxide* 22 mmol/L (20-32); Glucose* 102 mg/dL (60-115); Lipase* 38 U/L (23-300); Total Protein* 7.4 g/dL (6.0-8.3)
[2024-05-20 21:57] LABS: Troponin I* < 0.01 ng/mL (0.01-0.04)
[2024-05-20 22:00] LABS: Strep A DNA Probe* NOT DETECTED (Not Detectd)
[2024-05-20] MEDS: KETOROLAC 15 MG/ML inj IVP (22:20)
[2024-05-20 23:04] LABS: D Dimer Quantitative* 0.63 ug/ml (0.00-0.50)
--- NOTE | 2024-05-20 23:27 | CRLHL7_ITS ---
For Patients: As a result of the Century Cures Act, medical imaging exams and procedure reports are released immediately into your electronic medical record. You may view this report before your referring provider. If you have questions, please contact your health care provider. INDICATION: Chest pain. TECHNIQUE: CT chest PE was acquired with 95 cc Omnipaque 370 IV contrast. COMPARISON: None. FINDINGS: Heart and vasculature: Contrast opacification of the pulmonary arterial tree is adequate. No sign of pulmonary embolism. Heart size is normal. Thoracic aorta and pulmonary artery are normal in caliber. Lungs and pleura: No suspicious nodules or infiltrates. Left lower lobe calcified granuloma no pleural effusions, pleural thickening, or pneumothorax. Lymph nodes/mediastinum: No mediastinal, hilar, or axillary adenopathy. Chest wall: No masses. Upper abdomen: Dictated separately. Bones: Unremarkable for age. IMPRESSION: No acute findings in the chest. Specifically, no evidence of pulmonary embolism. Please note that all CT scans at this facility use dose modulation, iterative reconstruction, and/or weight-based dosing when appropriate to reduce radiation dose to as low as reasonably achievable. Dictated by Devin Flynn MD @ 05/21/2024 12:44:18 AM (Electronically Signed)
--- NOTE | 2024-05-20 23:31 | CRLHL7_ITS ---
For Patients: As a result of the Century Cures Act, medical imaging exams and procedure reports are released immediately into your electronic medical record. You may view this report before your referring provider. If you have questions, please contact your health care provider. INDICATION: Seizure-like symptoms, dizzy. TECHNIQUE: CT head without contrast. COMPARISON: None. FINDINGS: CSF spaces: Within normal limits for age. Brain parenchyma and extra-axial spaces: The hall-white differentiation is unremarkable. No sign of mass, hemorrhage, or midline shift. No extra-axial fluid collection. Skull base and calvarium: Small right maxillary sinus mucous retention cyst. Mastoids are clear. The visualized orbits are grossly unremarkable. No skull fractures. IMPRESSION: No acute or suspicious intracranial abnormality. Please note that all CT scans at this facility use dose modulation, iterative reconstruction, and/or weight-based dosing when appropriate to reduce radiation dose to as low as reasonably achievable. Dictated by Devin Flynn MD @ 05/21/2024 12:36:37 AM (Electronically Signed)
--- NOTE | 2024-05-20 23:31 | CRLHL7_ITS ---
For Patients: As a result of the Century Cures Act, medical imaging exams and procedure reports are released immediately into your electronic medical record. You may view this report before your referring provider. If you have questions, please contact your health care provider. INDICATION: Epigastric pain. TECHNIQUE: CT abdomen and pelvis acquired with 95 cc Omnipaque 370 IV contrast. COMPARISON: None. FINDINGS: Lower chest: Dictated separately. Liver: Unremarkable. Normal in size and attenuation. No suspicious masses. Gallbladder and bile ducts: Cholecystectomy. No biliary dilatation. Pancreas: Unremarkable. No mass or inflammation. Spleen: Unremarkable. Normal in size. No masses. Adrenal glands: Unremarkable. No nodules. Kidneys: Unremarkable. No suspicious masses, stones, or hydronephrosis. GI tract: Tiny hiatal hernia. Normal in caliber. No sign of mass or inflammation. Appendectomy. Colonic diverticuli, but no acute diverticulitis. Vasculature: Abdominal aorta is normal in caliber. Mesenteric arteries are patent. Lymph nodes: No lymphadenopathy. Peritoneum/Abdominal Wall: No pneumoperitoneum. Trace pelvic free fluid. Pelvis: Bladder is unremarkable. Reproductive organs are unremarkable. Bones: Unremarkable for age. IMPRESSION: No acute or suspicious findings in the abdomen or pelvis. Please note that all CT scans at this facility use dose modulation, iterative reconstruction, and/or weight-based dosing when appropriate to reduce radiation dose to as low as reasonably achievable. Dictated by Devin Flynn MD @ 05/21/2024 12:54:42 AM (Electronically Signed)
== END 2024-05-21 01:00 | disposition home or self-care (01) ==
PROVIDERS: Emergency Provider Student in an Organized Health Care Education/Training Program
DX: B34.9 Viral infection, unspecified (principal)
CPT/HCPCS: 36415; 70450; 71045; 71275; 74177; 80053; 83690; 83735; 84484; 85025; 85379; 87631; 87651; 96374; 99284; 99285; J1885; Q9967

== ENCOUNTER 2025-01-04 22:08 | Emergency (ER) | payer OTHER, SELFPAY ==
--- OUTSIDE RECORDS SUMMARY | 2025-01-04 22:11 | XMS_ITS | Encounter Summary ---
Author Organization [facility] Address [address] [place] [address] Care Team Providers Care Paint Striping Machine Operator Name Role Phone Kishore Verdugo PA-C Primary Care Provide r Kishore Verdugo PA-C Unavailable Tony Garcia DO Unavailable Kishore Verdugo PA-C Unavailable Reason for Visit * Reason Comments Medication Refill Encounter Details Date Type Department Care Team (Late st Contact Info) Description 04/10/[address] [address] Kishore Verdugo PA-C [address] [place] [address] [place]ANTES [address] Medication Refill Social History Tobacco Use Types [...] permanent housing and does not include staying outside in a car, in a tent, in an abandoned building, in an overnight correction, or couch-surfing.) Patient refused 12/25/2022 Are you [...] on file 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 Gender Identity Not on file Sexual Orientation [...] chronicity documented in this encounter Care Teams Paint Striping Machine Operator Relationship Specialty Start Date End Date Kishore Verdugo PA-C [address] [place] [address] [place] [address] PCP - General Family Medicine 06/14/20 Kishore Verdugo PA-C [address] [place] [address] [place] [address] Assigned PCP 05/12/22 08/07/23 Tony Garcia DO [address] [place] [address] Assigned PCP 08/08/23 11/06/24 Kishore Verdugo PA-C 0 [facility] [address] Assigned PCP 11/07/24 documented as of this encounter
--- OUTSIDE RECORDS SUMMARY | 2025-01-04 22:11 | XMS_ITS | Clinical Summary ---
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 Gender Identity Not on file Sexual Orientation [...] Health Maintenance Due Date Last Done Comments Tetanus booster 1989 Depression screening for age 12+ 1990 HIV for age 15-65 1993 BMI (ht and wt on same day) for age 18+ 1996 Hepatitis C screening for ag e 18-79 1996 Hepatitis B series for 19+ ( 1 of 3 - 19+ 3-dose series) 1997 Colonoscopy through age 75 10/01/2023 Lipids for age 45-75 10/01/2023 Mammogram for age 45-75 10/01/2023 COVID-19 vaccine series (2024- season) 2024 05/06/2020, 04/08/2020 Influenza Vaccine (#1) 2024 2, 01/08/2020, 12/18/2017 Pap test for age 21-65 08/18/2027 3, 08/17/2022 RSV vaccine for adults or (1 - 1-dose 75+ series) 2053 Pneumococcal series for age 6-49 Aged Out [...] 16 Negative Negative 08/21/2022 5:14 PM CDT [facility] TYPE 18 Negative Negative 08/21/2022 5:14 PM CDT [facility] OTHER HIGH RISK TYPES Negative Negative 08/21/2022 5:14 PM CDT [facility] Other (Cervical) Non-Blood / Unknown 08/17/2022 1:40 PM CDT 08/20/2022 11:30 AM CDT Narrative [facility] - 08/21/2022 5:14 PM CDT HPV types 16, 18, 31, 33, 35, 39, 45, 51, 52, 56, 58, 59, 66 and 68 DNA were undetectable or below the pre-set threshold. Methodology: [employer] Martha 4800 HPV Test us Cheryl Robison NP MICROBIOLOGY Final Result [facility] [address] [place] [address], from Last 3 Months or Most Recently Relevant to Health Maintenance Insurance [facility] [place] [address] Advance Directives * Full Code (Latest Code Status on File) Date Activated Date Inactivated Comments 09/20/2007 1:33 PM 09/23/2007 12:19 AM Care Teams Resource Economist Relationship Specialty Start Date End Date Canadian, [facility] [place] PCP - General 07/26/21
--- OUTSIDE RECORDS SUMMARY | 2025-01-04 22:11 | XMS_ITS | Encounter Summary ---
Author Organization [facility] Address [address] [place] [address] Care Team Providers Care Passenger Service Agent Name Role Phone [facility], [facility] Primary Care Provi susys Ward Sosa MD Unavailable Kartik Garrison APRN REPORT SPECIALIST Unavailable Kishore Verdugo PA-C Primary Care Provide r [...] (Late st Contact Info) Description 10/15/[address] [address] [place] Patricio [place] [address] [phone] Medication Refill Social History Tobacco Use Types Packs/Day Years Used Date Smoking Tobacco: Former Smokeless Tobacco: Never Comments:quit 08/05/18 Alcohol Use Standard Drinks/Week Comments Yes 0 (1 standard drink = 0.6 oz pur e alcohol) PHQ-2 Answer Date Recorded PHQ-2 Score 0 03/26/2018 Comments No Sex and Gender Information Value Date Recorded Sex Assigned at Not on file 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 Gender Identity Not on file Sexual Orientation [...] Edema documented in this encounter Care Teams Passenger Service Agent Relationship Specialty Start Date End Date [address] [address] PCP - General 03/28/17 06/13/20 Kishore Verdugo PA-C [address] [place] [address] [place] DORANTES [address] PCP - General Family Medicine 06/14/20 Ward Sosa MD [address] [place] [address] [place] DORANTES [address] Assigned PCP 06/21/19 04/02/20 Kartik Garrison APRN REPORT SPECIALIST [address] [address] Assigned PCP 04/03/20 12/24/20 Kishore Verdugo PA-C [address] [place] [address] [place] [address] Assigned PCP 12/25/20 02/25/21 Prakash Fernando MD [address] [place] [address] Assigned PCP 02/26/21 03/25/21 Kishore Verdugo PA-C [address] [place] [address] [place] [address] Assigned PCP 03/26/21 09/01/21 Ward Sosa MD [address] [place] [address] [place] [address] Assigned PCP 09/02/21 02/09/22 Kishore Verdugo PA-C [address] [place] [address] [place] [address] Assigned PCP 02/10/22 03/02/22 Albania Mesa MD [address] [place] [address] Assigned PCP 03/03/22 05/11/22 Kisohre Verdugo PA-C [address] [place] [address] [place] [address] Assigned PCP 05/12/22 08/07/23 Tony Garcia DO 4[address] [facility] [place] [address] Assigned PCP 08/08/23 11/06/24 Kishore Verdugo PA-C 0 [facility] [address] [place], [place] [address] Assigned PCP 11/07/24 documented as of this encounter
--- OUTSIDE RECORDS SUMMARY | 2025-01-04 22:11 | XMS_ITS | Encounter Summary ---
Author Organization [facility] Address [address] [place] [address] Care Team Providers Care Plant Breeder Scientist Name Role Phone Kishore Verdugo PA-C Primary Care Provide r Kishore Verdugo PA-C Unavailable Tony Garcia DO Unavailable Kishore Verdugo PA-C Unavailable Encounter Details Date Type Department Care Team (Late st Contact Info) Description 12/25/2022 MyC Medical Advice [address] [address] Meredith Paul, QUALITY IMPROVEMENT MANAGER Social History Tobacco Use Types Packs/Day Years [...] in an abandoned building, in an overnight custodial, or couch-surfing.) Patient refused 12/25/2022 Are you [...] on file Legal Sex Female 4:46 AM POLITICAL DIRECTOR Gender Identity Not on file Sexual Orientation Not on file Occupation Industry Job Start Date Job End Date Not on file Not on file Not on file Not on file documented as of this encounter Plan of Treatment Not on file documented as of this encounter Visit Diagnoses Not on filedocumented in this encounter Care Teams Plant Breeder Scientist Relationship Specialty Start Date End Date Kishore Verdugo PA-C [address] [place] [address] [place] [address] PCP - General Family Medicine 06/14/20 Kishore Verdugo PA-C [address] [place] [address] [place] D[place] [address] Assigned PCP 05/12/22 08/07/23 Tony Garcia DO [address] [place] [address] Assigned PCP 08/08/23 11/06/24 Kishore Verdugo PA-C [address] [place] [address] [place] DORANTES [address] Assigned PCP 11/07/24 documented as of this encounter
--- OUTSIDE RECORDS SUMMARY | 2025-01-04 22:11 | XMS_ITS | Encounter Summary ---
Author Organization [facility] Address [address] [place] [address] Care Team Providers Care Senior Hardware Design Engineer Name Role Phone [facility], [facility] Primary Care Provi sussy Kartik Garrison APRN OUTDOOR EDUCATION TEACHER Unavailable Kishore Verdugo PA-C Primary Care Provide r Kishore Verdugo PA-C Unavailable Prakash Fernando MD Unavailable Kishore Verdugo PA-C Unavailable Ward Sosa MD Unavailable Kishore Verdugo PA-C Unavailable Albania Mesa MD Unavailable Kishore Verdugo PA-C Unavailable Tony Garcia DO Unavailable Kishore Verdugo PA-C Unavailable Encounter Details Date Type Department Care Team (Late st Contact Info) Description 05/29/2020 MyC Medical Advice [facility] [address] [address] Fatou Gallo, RN Social History Tobacco Use [...] on file Legal Sex Female 4:46 AM ORTHOPEDIC ASSISTANT Gender Identity Not on file Sexual Orientation Not on file Occupation Industry Job Start Date Job End Date Not on file Not on file Not on file Not on file documented as of this encounter Plan of Treatment Not on file documented as of this encounter Visit Diagnoses Not on filedocumented in this encounter Care Teams Senior Hardware Design Engineer Relationship Specialty Start Date End Date [facility], [facility] [address] [place] [address] PCP - General 03/28/17 06/13/20 Kishore Verdugo PA-C [address] [place] [address] [place] DORANTES [address] PCP - General Family Medicine 06/14/20 Kartik Garrison APRN OUTDOOR EDUCATION TEACHER [address] [address] Assigned PCP 04/03/20 12/24/20 Kishore Verdugo PA-C [address] [place] [address] [place] DORANT[place] [address] Assigned PCP 12/25/20 02/25/21 Prakash Fernando MD [address] [place] [address] Assigned PCP 02/26/21 03/25/21 Kishore Verdugo PA-C [address] [place] [address] [place] D[place] [address] Assigned PCP 03/26/21 09/01/21 Ward Sosa MD [address] [place] [address] [place] [address] Assigned PCP 09/02/21 02/09/22 Kishore Verdugo PA-C [address] [place] [address] [place] [address] Assigned PCP 02/10/22 03/02/22 Albania Mesa MD [address] [place] [address] Assigned PCP 03/03/22 05/11/22 Kishore Verdugo PA-C [address] [place] [address] [place] [address] Assigned PCP 05/12/22 08/07/23 [place] [address] [place] [address] Assigned PCP 08/08/23 11/06/24 Kishore Verdugo PA-C [address] [place] [address] [place] [address] Assigned PCP 11/07/24 documented as of this encounter
--- OUTSIDE RECORDS SUMMARY | 2025-01-04 22:11 | XMS_ITS | Encounter Summary ---
Author Organization [facility] Address [address] [place] [address] Care Team Providers Care Director Post Name Role Phone Jalen Marx MD Primary Care Provider + [phone] No Ref-Primary, Physician Primary Care Provider [facility] Primary Care Provi sussy Kishore Verdugo PA-C Unavailable Ward Sosa MD Unavailable Kishore Verdugo PA-C Unavailable Ward Sosa MD Unavailable Kartik Garrison APRN BEARING RING ASSEMBLER Unavailable Virginia Patricio MD Unavailable Cele Herrmann MD Unavailable Virginia Patricio MD Unavailable Kishore Verdugo PA-C Unavailable Ward Sosa MD Unavailable Kartik Garrison APRN BEARING RING ASSEMBLER Unavailable Kishore Verdugo PA-C Primary Care Provide r Kishore Verdugo PA-C Unavailable [phone] Prakash Fernando MD Unavailable Kishore Verdugo PA-C Unavailable [phone] Ward Sosa MD Unavailable Kishore Verdugo PA-C Unavailable [phone] Albania Mesa MD Unavailable Kishore Verdugo PA-C Unavailable Tony Garcia DO Unavailable Kartik Kishore Brock PA-C Unavailable Encounter Details Date Type Department Care Team (Late st Contact Info) Description 04/17/2007 Clinic Report ([facility] Minist[facility] Director) [facility] [address] [place] [address] [address] [place] [phone] Dami Valadez DO XXX XXX [address] [place] [address] Social History Tobacco Use Types Packs/Day Years Used Date Smoking Tobacco: Former Comments:quit in ~ 2003 Alcohol Use Standard Drinks/Week Comments Not Asked 0 (1 standard drink = 0.6 oz pur e alcohol) Comments No Sex and Gender Information Value Date Recorded Sex Assigned at Not on file Legal Sex Female 4:46 AM FSR Gender Identity Not on file Sexual Orientation Not on file documented as of this encounter Progress Notes * Dami Valadez DO - 02/09/2012 2:44 PM CST CC/HPI: Started 1 wk ago. Cough is somewhat productive,ione green phlegm can't sleep for coughing, stomach [...] of water.. Plan: None Patient Instructions: None documented in this encounter Plan of Treatment Not on file documented as of this encounter Visit Diagnoses Not on filedocumented in this encounter Additional Health Concerns Infection Onset Date Last Indicated Resolved Time Rule Out COVID-19 10/07/2019 10/07/2019 10/08/2019 7:25 PM CDT documented as of this encounter Care Teams Director Post Relationship Specialty Start Date End Date Jalen Marx MD [address] [address] PCP - General Internal Medicine 07/30/11 12/21/14 No Ref-Primary, Physician PCP - General 12/22/14 03/27/[facility] [place] [address] PCP - General 03/28/17 06/13/20 Kishore Verdugo PA-C [address] [place] [address] [place] [address] PCP - Assigned PCP 04/28/17 04/26/18 Ward Sosa MD [address] [place] [address] [place] D[place] [address] PCP - Assigned PCP 04/27/18 05/20/18 Kishore Verdugo PA-C [address] [place] [address] [place] [address] PCP - General Family Medicine 06/14/20 Kishore Verdugo PA-C [address] [place] [address] [address] [place], [place] [address] Assigned PCP 04/28/17 04/26/18 Ward Sosa MD [address] [place] [address] [address] [place] [place], [place] [address] Assigned PCP 04/27/18 05/24/18 Kartik Garrison APRN BEARING RING ASSEMBLER [address] [address] Assigned PCP 05/25/18 09/13/18 [place] [address] [place] [phone] Assigned PCP 09/14/18 10/25/18 Cele Herrmann MD [address] [place] [address] [place] [address] Assigned PCP 10/26/18 01/31/19 Virginia Patricio MD [address] [address] Assigned PCP 02/01/19 02/21/19 Kishore Verdugo PA-C [address] [place] [address] [place] D[place] [address] Assigned PCP 02/22/19 06/20/19 Ward Sosa MD [address] [place] [address] [place] [address] Assigned PCP 06/21/19 04/02/20 Kartik Garrison APRN BEARING RING ASSEMBLER [address] [address] Assigned PCP 04/03/20 12/24/20 Kishore Verdugo PA-C [address] [place] [address] [place] [address] Assigned PCP 12/25/20 02/25/21 Prakash Fernando MD [address] [place] [address] Assigned PCP 02/26/21 03/25/21 Kishore Verdugo PA-C [address] [place] [address] [place] [address] Assigned PCP 03/26/21 09/01/21 Ward Sosa MD [address] [place] [address] [place] [address] Assigned PCP 09/02/21 02/09/22 Kishore Verdugo PA-C [address] [place] [address] [place] [address] Assigned PCP 02/10/22 03/02/22 Albania Mesa MD [address] [place] [address] Assigned PCP 03/03/22 05/11/22 Kishore Verdugo PA-C [address] [place] [address] [address] [place] [place]ERR[place], [place] [address] Assigned PCP 05/12/22 08/07/23 Tony Garcia DO [address] [place] [address] Assigned PCP 08/08/23 11/06/24 Kishore Verdugo PA-C [address] [place] [address] [address] [place]LES [place]ERR[place], [place] [address] Assigned PCP 11/07/24 documented as of this encounter
--- OUTSIDE RECORDS SUMMARY | 2025-01-04 22:11 | XMS_ITS | Encounter Summary ---
Author Organization [facility] Address [address] [place] [address] Care Team Providers Care Production Clerks Supervisor Name Role Phone Kishore Verdugo PA-C Primary Care Provide r Ward Sosa MD Unavailable Kishore Verdugo PA-C Unavailable Albania Mesa MD Unavailable Kishore Verdugo PA-C Unavailable Tony Garcia DO Unavailable Kishore Verdugo PA-C Unavailable Reason for Visit * Reason Comments Medication Refill Encounter Details Date Type Department Care Team (Late st Contact Info) Description 11/29/2021 [facility] [address] [place] [address] [place] [phone] Ward Sosa MD [address] [place] [address] [place] [address] Medication Refill Social History Tobacco Use Types [...] file Legal Sex Female 4:46 AM MANAGER CODE Gender Identity Not on file Sexual Orientation [...] sequela documented in this encounter Care Teams Production Clerks Supervisor Relationship Specialty Start Date End Date Kishore Verdugo PA-C [address] [place] [address] [place] [address] PCP - General Family Medicine 06/14/20 Ward Sosa MD [address] [place] [address] [place] [address] Assigned PCP 09/02/21 02/09/22 Kishore Verdugo PA-C [address] [place] [address] [place] [address] Assigned PCP 02/10/22 03/02/22 Albania Mesa MD [facility] [place] [address] Assigned PCP 03/03/22 05/11/22 Kishore Verdugo PA-C [address] [place] [address] [place] [address] Assigned PCP 05/12/22 08/07/23 [place] [address] [place] [address] Assigned PCP 08/08/23 11/06/24 Kishore Verdugo PA-C 0 [facility] [address] MYLES [place]ERR[place], [place] [address] Assigned PCP 11/07/24 documented as of this encounter
--- OUTSIDE RECORDS SUMMARY | 2025-01-04 22:11 | XMS_ITS | Encounter Summary ---
Author Organization [facility] Address [address] [place] [address] Care Team Providers Care Services Host Name Role Phone [facility] Primary Care Provi sussy Kartik Garrison APRN MATTRESS SPECIALIST Unavailable [phone] Kishore Verdugo PA-C Primary Care Provide r [...] (Late st Contact Info) Description 05/25/2020 Refill [facility] [address] [place] [phone] Virginia Patricio MD [address] [phone] Medication Refill Social History Tobacco Use Types [...] on file Legal Sex Female 4:46 AM EVENT STAFF Gender Identity Not on file Sexual Orientation [...] to call back. 3 rd attempt Sent [email or web address] message 05/29- not read yet Vicki Campuzano RN BSN [facility] [phone] * Telephone Encounter - Fatou Gallo RN - 05/26/2020 1:13 PM EVENT STAFF Left message on answering machine for patient to call back. Vicki CampuzanoHEARING SCREENER [facility] [phone] T STAFF * Telephone Encounter - Virginia Patricio MD - 05/26/2020 10:43 AM EVENT STAFF I haven't seen Sabrina since 08/2018. She has had visits with a number of providers here. Who does she consider her PCP? Virginia Patricio MD T STAFF * Telephone Encounter - Fatou Gallo RN - 05/26/2020 8:37 AM EVENT STAFF Patient due for labs- Visit is updated- [...] No positive test in past 12 months T STAFF documented in this encounter Plan of Treatment Not on file documented as of this encounter Visit Diagnoses Diagnosis Leg edema Edema documented in this encounter Care Teams Services Host Relationship Specialty Start Date End Date [facility], [address] [place] [address] PCP - General 03/28/17 06/13/20 Kishore Verdugo PA-C [address] [place] [address] [place] [address] PCP - General Family Medicine 06/14/20 Kartik Garrison APRN MATTRESS SPECIALIST [address] [facility] [place] [address] Assigned PCP 04/03/20 12/24/20 Kishore Verdugo PA-C [address] [place] [address] [place] [address] Assigned PCP 12/25/20 02/25/21 Prakash Fernando MD [address] [place] [address] Assigned PCP 02/26/21 03/25/21 Kishore Verdugo PA-C [address] [place] [address] [place] [address] Assigned PCP 03/26/21 09/01/21 Ward Sosa MD [address] [place] [address] [address] MYLES SERR[place]O, [place] [address] Assigned PCP 09/02/21 02/09/22 Kishore Verdugo PA-C [address] [place] [address] [address] [place]LES [place]ERR[place]O, [place] [address] Assigned PCP 02/10/22 03/02/[address] [facility] [place] [address] Assigned PCP 03/03/22 05/11/22 Kishore Verdugo PA-C [address] [place] [address] [address] MYLES SERRANO, [place] [address] Assigned PCP 05/12/22 08/07/23 Tony Garcia DO [address] [place] [address] Assigned PCP 08/08/23 11/06/24 Kishore Verdugo PA-C [address] [place] [address] [place] [address] Assigned PCP 11/07/24 documented as of this encounter
--- OUTSIDE RECORDS SUMMARY | 2025-01-04 22:11 | XMS_ITS | Clinical Summary ---
Author Organization [facility] Address [address] [place] [id number] Care Team Providers Care Linux Kernel Developer Name Role Phone Kishore Verdugo PA-C Primary Care Provide r Kishore Verdugo PA-C Unavailable Allergies No known active allergies Medications fluticasone (FLONASE) 50 MCG/ACT sprayIndications :Acute non-recurrent maxillary sinusitis [place] 1-2 sprays into both nostrils daily 9.9 [...] Date Resolved Date Psychosis 11/11/2016 06/14/2020 Immunizations Immunization Administration Dates Next Due COVID-19 Monovalent 18+ [...] on file Legal Sex Female 4:46 AM SENIOR CYBER INTELLIGENCE ANALYST Gender Identity Not on file Sexual Orientation [...] 170.2 cm (5' 7) 04/25/2019 4:41 PM SENIOR CYBER INTELLIGENCE ANALYST Body Mass Index 29.13 04/25/2019 4:41 PM SENIOR CYBER INTELLIGENCE ANALYST Plan of Treatment Health Maintenance Due Date Last Done Comments ADVANCE CARE PLANNING 1978 CT COLONOGRAPHY 1978 FIT 1978 FLEX SIG 1978 MAMMO SCREENING 1978 sDNA (Cologuard) 1978 COLONOSCOPY 1988 COLORECTAL CANCER SCREENING 1988 HEPATITIS B VACCINE (1 of 3 - 19+ 3-dose series) 1997 DTAP/TDAP/TD VACCINE (1 - Tdap) 10/01/2003 LIPID 2018 DIABETES SCREENING 04/25/2022 04/25/2019, 0 03/28/2017, 11/11/2016, Additional history exists ANNUAL REVIEW OF HM ORDERS 07/19/2022 07/19/2021 YEARLY PREVENTIVE VISIT 08/18/2023 08/17/2022, 08/17 PHQ-2 (once per calendar year) 2024 04/11/2023, 12/25/2022, 07/19/2021, Additional history exists COVID-19 VACCINE ( - season) 2024 05/06/2020, 04/08/2020 INFLUENZA VACCINE (#1) 2024 2, 01/08/2020, 12/18/2017 HPV TEST 08/18/2027 08/17/2022, 06/0 04/2022, 10/23/2017 PAP 08/18/2027 08/17/2022, 06/0 04/2022, 08/17/2022, Additional history exists ZOSTER VACCINE (1 of 2) 2028 HEPATITIS C SCREENING Completed 11/13/2016 HIV SCREENING Completed 11/13/2016 HPV VACCINE (No Doses Required) Completed MENINGITIS VACCINE Aged Out No longer eligible based on patient's age to complete this topic PNEUMOCOCCAL VACCINE: PEDIATRICS (0 to 5 YEARS) AND AT-RISK PATIENTS (6 to 49 YEARS) Aged Out No longer eligible based on patient's age to complete this topic Procedures Procedure Name Priority Date/Time Associated Diagnosis Comments BASIC METABOLIC PANEL STAT 04/25/2019 5:12 PM SENIOR CYBER INTELLIGENCE ANALYST HPV HIGH RISK TYPES DNA CERVICAL Routine [...] (ABNORMAL) Basic metabolic panel (04/25/2019 5:12 PM SENIOR CYBER INTELLIGENCE ANALYST) Sodium 140 133 - 144 mmol/L 04/25/2019 5:29 PM SENIOR CYBER INTELLIGENCE ANALYST [facility] Potassium 3.7 3.4 - 5.3 mmol/L 04/25/2019 5:29 PM SENIOR CYBER INTELLIGENCE ANALYST [facility] Chloride 110(H) 94 - 109 mmol/L 04/25/2019 5:29 PM SENIOR CYBER INTELLIGENCE ANALYST [facility] Carbon Dioxide 24 20 - 32 mmol/L 04/25/2019 5:34 PM SENIOR CYBER INTELLIGENCE ANALYST [facility] Anion Gap 6 3 - 14 mmol/L 04/25/2019 5:34 PM [facility] Glucose 92 70 - 99 mg/dL 04/25/2019 5:34 PM [facility] Urea Nitrogen 14 7 - 30 mg/dL 04/25/2019 5:34 PM [facility] Creatinine 0.58 0.52 - 1.04 mg/dL 04/25/2019 5:34 PM [facility] GFR Estimate >90 >60 mL/min/{1. 73_m2} 04/25/2019 5:34 PM [facility] Comment: Non GFR Calc Starting 03/04/2018, serum creatinine based estimated GFR (eGFR) will be calculated using the Chronic Kidney Disease Epidemiology Collaboration (CKD-EPI) equation. GFR Estimate If Black >90 >60 mL/min/{1. 73_m2} 04/25/2019 5:34 PM [facility] Comment: GFR Calc Starting 03/04/2018, serum creatinine based estimated GFR (eGFR) will be calculated using the Chronic Kidney Disease Epidemiology Collaboration (CKD-EPI) equation. Calcium 9.0 8.5 - 10.1 mg/dL 04/25/2019 5:34 PM [facility] Blood specimen (specimen) 04/25/2019 5:12 PM SENIOR CYBER INTELLIGENCE ANALYST 04/25/2019 5:16 PM SENIOR CYBER INTELLIGENCE ANALYST us Yamileth West NP LAB - BLOOD ORDERABLES Final Result Performing Organization Address City/State/[facility] Co de Phone Number [facility] [address] [place] [address], [facility] [phone] * HPV High Risk Types DNA Cervical (10/23/2017 4:20 PM CDT) HPV Source [facility] 10/23/2017 4:12 PM CDT [facility] HPV 16 DNA Negative NEG^Nega tive 10/30/2017 12:10 PM CDT [facility] HPV 18 DNA Negative NEG^Nega tive 10/30/2017 12:10 PM CDT [facility] Other HR HPV Negative NEG^Nega tive 10/30/2017 12:10 PM CDT [facility] Final Diagnosis This patient's sample is negative for HPV DNA. 10/30/2017 12:10 PM CDT [facility] Comment: This test was developed and its performance characteristics determined by the [facility]. It has not been [...] Description Cervical Cells 10/29/2017 7:25 AM CDT [facility] Comment:[id number] Cervical Cells 10/23/2017 4: 20 PM CDT 10/23/2017 4:39 PM CDT us Francisco Chang MD LAB - BLOOD ORDERABLES Fi nal Result [address] [address] [id number] * Pap imaged thin layer screen with HPV - recommended age 30 - 65 years (select HPV order below) (10/23/2017 4:11 PM CDT) PAP [place] Wall Report Patient Name: ANGEL LEE MR#: [id number] Specimen #: [id number] Collected: 10/23/2017 Received: 10/25/2017 Reported: 10/28/2017 14:04 [...] VIANEY Stone (ASCP) Processed and screened at [facility] CLINICAL HISTORY: Papanicolaou Test Limitations: Cervical cytology is a screening test with limited sensitivity; regular screening is critical for cancer prevention; Pap tests are primarily effective for the diagnosis/preventi on of squamous cell carcinoma, not adenocarcinomas or other cancers. TESTING LAB LOCATION: [address] [address] COLLECTION SITE: Client: [facility] Location: [facility] (S) [facility] Cytologic material (specimen) 10/23/2017 4:11 PM CDT 10/25/2017 9:10 AM CDT us Francisco Chang MD LAB - OPTIME CLINICAL SPE RAUL Final Result [facility] * HIV Antigen Antibody Combo (11/13/2016 10:30 AM CDT) HIV Antigen Antibody Combo Nonreactive NR^Nonrea ctive 11/13/2016 2:53 PM CDT [facility] Comment:HIV-1 p24 Ag & HIV-1 /HIV-2 Ab Not Detected Blood specimen (specimen) 11/13/2016 10:30 AM CDT 11/13/2016 10:31 AM CDT Suraj Mancini MD LAB - BLOOD ORDERABLES Nabila l Result [facility] [address] [place] [address] * Hepatitis C antibody (11/13/2016 10:30 AM CDT) Hepatitis C Antibody Nonreactive NR^Nonre active 11/13/2016 2:53 PM CDT [facility] Comment: Assay performance characteristics have not been established for newborns, infants, and children Blood specimen (specimen) 11/13/2016 10:30 AM CDT 11/13/2016 10:31 AM CDT Suraj Mancini MD LAB - BLOOD ORDERABLES Nabila l Result Performing Organization Address City/[facility] Co de Phone Number [facility] [address] [place] [address] from Last 3 Months or Most Recently Relevant to Health Maintenance Insurance [facility] COMMERCIAL [facility] COMMERCIAL [facility] [employer] Advance Directives For more information, please contact: [phone] * Full Code (Latest Code Status on File) Date Activated Date Inactivated Comments 11/11/2016 12:14 AM 11/13/2016 5:09 PM Care Teams Linux Kernel Developer Relationship Specialty Start Date End Date Kishore Verdugo PA-C [address] [place] [address] [place] [id number] PCP - General Family Medicine 06/14/20 Kishore Verdugo PA-C [address] [place], [place] [address] Assigned PCP 11/07/24
[2025-01-04 22:20] VITALS: BP 121/83; PULSE 110; RESP 18; TEMP 36.7; O2SAT 99; BMI 29.8
--- NOTE | 2025-01-04 22:24 | CRLHL7_ITS ---
For Patients: As a result of the Cures Act, medical imaging exams and procedure reports are released immediately into your electronic medical record. You may view this report before your referring provider. If you have questions, please contact your health care provider. Indication: Trauma. Technique: Three views of the left wrist. Comparison: None. Findings/Impression: No acute fracture, dislocation, or suspicious osseous lesion. Wrist alignment is maintained. Dictated by Raymundo Sarmiento MD @ 01/04/2025 11:19:05 PM (Electronically Signed)
--- NOTE | 2025-01-04 22:24 | CRLHL7_ITS ---
For Patients: As a result of the Cures Act, medical imaging exams and procedure reports are released immediately into your electronic medical record. You may view this report before your referring provider. If you have questions, please contact your health care provider. Indication: Trauma. Technique: Two views of the left hand. Comparison: None. Findings/Impression: No acute fracture, dislocation, or suspicious osseous lesion. Visualized joint spaces are within normal limits. Wrist alignment maintained. Dictated by Raymundo Sarmiento MD @ 01/04/2025 11:19:54 PM (Electronically Signed)
--- NOTE | 2025-01-04 22:24 | ED.UPPEXIN ---
HPI - Extremity Injury (Upper) General Time Seen by Provider: 22:24 Date Seen: 01/04/25 Chief Complaint: Extremity Pain/Injury, Upper Stated Complaint: L arm injury/broken? Time Seen by Provider: 01/04/25 22:24 Source: patient, family and RN notes reviewed Mode of arrival: ambulatory Limitations: no limitations History of Present Illness HPI narrative: 44-year-old female not currently on any medications otherwise healthy who comes to the emergency room complaints of possible broken arm. Patient states that she had her hand slammed in a door tonight. She had told nursing staff previously that maybe it was because she got hit with a broom. He she complains of pain from her left thumb through her wrist. She notes that it is also tingling. No other injury except for bruise on her left bicep. No previous fractures here. Related Data Home Medications ?Medication ?Instructions ?Recorded ?Confirmed No Known Home Medications 01/04/25 01/04/25 Allergies Allergy/AdvReac Type Severity Reaction Status Date / Time No Known Drug Allergies Allergy Verified 01/04/25 22:25 Review of Systems Status of ROS: Reports: 6 or more systems reviewed and unremarkable except as noted in History and below [facility] Social History Smoking Status: Never smoker Do you use any of these nicotine containing products: None Second hand tobacco smoke exposure: No How often do you have a drink containing alcohol: never How often do you have six or more drinks on one occasion: Never AUDIT-C Alcohol total score: 0 Non-prescribed substance use: denies use service: No Exam Narrative: Exam Narrative: Alert and oriented. Pleasant and interactive. Speech and mentation normal. No respiratory distress. Examination of the left hand shows some ecchymosis at the thenar eminence. She she also has a superficial abrasion approximately 4 mm over the radial volar distal. Area. She is exquisitely tender everywhere and thus very challenging to your examine. However, there is some of distraction noted and she has no tenderness over her mid forearm elbow or humerus. She has a quarter-sized area of ecchymosis on the medial biceps. She is able to move her shoulder and elbow. I do see movement in the thumb and wrist when examining upper arm. Sensation is intact.. He has good capillary refill. Const: Vital Signs, click to edit/add: Vital Signs - 24 hr 01/04/25 22:20 Temperature 98.0 F Pulse Rate [Pulse Oximeter] 110 H Respiratory Rate 18 Blood Pressure [Ri ght Upper Arm] 121/83 Pulse Oximetry 99 Oxygen Delivery Me thod Room Air Documenting provider has reviewed patient's vital signs: yes Course Course ED Course: Differential diagnosis includes but is not limited to thumb fracture, wrist fracture, soft tissue injury, ligamental strain. Will obtain ice, give patient ibuprofen 600 mg in obtain x-rays of both the thumb and wrist. Reevaluation(s) Reevaluation #1: By my read no obvious fractures but waited official radiological read. Did offer thumb spica as I do think it would feel better. Patient tolerated application well. At times would be him significant discomfort chest but same movement would not cause pain at a later time. She tolerated the thumb application and CMS is intact post application. Vital Signs Vital signs: Initial Vital Signs Temperature 98.0 F 01/04/25 22:20 Temperature Source Temporal Artery Scan 01/04/25 22:20 Pulse Rate 110 H 01/04/25 22:20 Pulse Rhythm Regular 01/04/25 22:20 Respiratory Rate 18 01/04/25 22:20 Blood Pressure 121/83 01/04/25 22:20 Blood Pressure Mean 95 01/04/25 22:20 Blood Pressure Position Supine 01/04/25 22:20 Pulse Oximetry 99 01/04/25 22:20 Oxygen Delivery Method Room Air 01/04/25 22:20 Vital Signs Temperature 98.0 F 01/04/25 22:20 Pulse Rate 110 H 01/04/25 22:20 Respiratory Rate 18 01/04/25 22:20 Blood Pressure 121/83 01/04/25 22:20 Pulse Oximetry 99 01/04/25 22:20 Oxygen Delivery Method Room Air 01/04/25 22:20 Temperature 98.0 F 01/04/25 22:20 Pulse Rate 110 H 01/04/25 22:20 Respiratory Rate 18 01/04/25 22:20 Blood Pressure 121/83 01/04/25 22:20 Pulse Oximetry 99 01/04/25 22:20 Oxygen Delivery Method Room Air 01/04/25 22:20 Medications Administered Medications: Discontinued Medications Generic Name Dose Route Start Last Admin Trade Name Freq PRN Reason Stop Dose Admin Ibuprofen 600 mg 01/04/25 22:33 01/04/25 22:39 Ibuprofen 200 Mg Tablet PO 01/04/25 22:34 600 mg ONCE ONE Administration MDM - Extremity Injury (Upper) MDM Narrative Medical decision making narrative: 1. Left hand and wrist injury-thumb spica applied. Ibuprofen 600 mg given. May continue ibuprofen and Tylenol alternating every 4 hours if needed. Patient did not tolerate ice. Will also offer sling. If not improved in the next 72 hours would follow-up with [facility]. The phone number will be supplied to patient. 2. Disposition-home. Return as needed for worsening symptoms. Patient is told that she may take the splint off and remove the padding if she wants to. I would then also removed the Band-Aid and ensure that this wound is still looking good. She may replace the thumbs by that without the padding and using Ben wrap if she so desires. Addendum: Radiological over read negative for fracture. Patient is discharged home. Medical Records Attestation: I reviewed the patient's medical records. Imaging Data Left hand x-ray: Attestation: I have reviewed the pertinent imaging results. My impression: No evidence of fracture. Radiologist's impression: Findings/Impression: No acute fracture, dislocation, or suspicious osseous lesion. Visualized joint spaces are within normal limits. Wrist alignment maintained. Left wrist x-ray: Attestation: I have reviewed the pertinent imaging results. My impression: No fractures. Radiologist's impression: Findings/Impression: No acute fracture, dislocation, or suspicious osseous lesion. Wrist alignment is maintained. Discharge Plan Discharge Clinical Impression: Soft tissue injury of finger of left hand Soft tissue injury of left wrist Qualifiers: Encounter type: initial encounter Qualified Code(s): S69.92XA - Unspecified injury of left wrist, hand and finger(s), initial encounter Patient Disposition: Home, Self-Care Condition: Improved Additional Instructions: Alternate ibuprofen 600 mg and acetaminophen 1000 mg every 4 hours as needed for discomfort. Try to keep your hand above the level of your heart to limit swelling. As we discussed you may remove the splint and underlying padding if you would like. Would also either replace the Band-Aid if needed but certainly look at the wound to make sure that it is looking okay. You may then reapply the splint if you would like. If you are not improving over the next 48 hours would recommend follow-up with orthopedics. They can be reached at [phone]. Return as needed for worsening symptoms. Prescriptions: No Action No Known Home Medications Follow Up/Referrals: Provider,Not a Local [Primary Care Provider, Family Practice] Stand Alone Forms: [employer] Info Instructions Procedures Orthopedic Splinting/Casting Injury #1: Side: left Upper Extremity Injury Location: wrist and hand Conclusion: patient tolerated procedure Additional Comments: Prior to application wound on the volar the lateral wrist cleansed and Band-Aid applied. Padding added and thumb spica placed with Ortho Glass.
[2025-01-04] MEDS: IBUPROFEN 200 MG TABLET 600 MG PO (22:39)
== END 2025-01-04 23:44 | disposition home or self-care (01) ==
PROVIDERS: Emergency Provider Family Medicine
DX: S69.92XA Unspecified injury of left wrist, hand and finger(s), initial encounter (principal); W23.0XXA Caught, crushed, jammed, or pinched between moving objects, initial encounter
CPT/HCPCS: 29125; 73110; 73120; 99283; 99284; A9270